=== PATIENT | male | born 1970 | race African-American/Black ===

== ENCOUNTER 2016-11-29 12:32 | Emergency (ER) | payer OTHER ==
[~2016-11-29] VITALS: Ht 176.5 cm; Wt 93.4 kg
[~2016-11-29 12:32] MED LIST: LISI-338 PO
[2016-11-29 12:38] VITALS: BP 139/87
[2016-11-29] MEDS ORDERED: SULF1TAB24 PO (13:27)
[2016-11-29] MEDS ORDERED: PRED50TA PO (13:27)
[2016-11-29] MEDS ORDERED: HYDR-971 PO (13:27)
[2016-11-29] MEDS ORDERED: DIPH25CA58 PO (13:27)
--- NOTE | 2016-11-29 13:27 | PHYS DOC ---
Past Medical History Past Medical History: Hypertension, Pneumonia Past Surgical History: No Surgical History Alcohol Use: Occasionally Drug Use: None Adult General Chief Complaint Chief Complaint: SKIN PROBLEM HPI HPI Patient is a 45 year old male with history of hypertension who presents complaining of a bump on the back of his neck for the last 1-1/2 weeks. Patient denies any fever or drainage from the area. Review of Systems Review of Systems Constitutional: See history of present illness Eyes: Denies change in visual acuity, redness, or eye pain [] Musculoskeletal: Denies back pain or joint pain [] Integument: bump on the back of the neck Neurologic: Denies headache, focal weakness or sensory changes [] Endocrine: Denies polyuria or polydipsia [] Allergies Allergies Allergies Coded Allergies Type Severity Reaction Last Updated Verified hydrocodone Allergy Intermediate Hives 11/29/16 No Physical Exam Physical Exam Constitutional: Well developed, well nourished, no acute distress, non-toxic appearance. [] HENT: Normocephalic, atraumatic, bilateral external ears normal, oropharynx moist, no oral exudates, nose normal. [] Abdomen: Bowel sounds normal, soft, no tenderness, no masses, no pulsatile masses. [] Skin: Posterior cervical spine with and none indurated firm area approximately 2 x 2 centimeters. The area is warm and tender to touch. No fluctuance to the area. Back: No tenderness, no CVA tenderness. [] Extremities: No tenderness, no cyanosis, no clubbing, ROM intact, no edema. [] Neurologic: Alert and oriented X 3, normal motor function, normal sensory function, no focal deficits noted. [] Psychologic: Affect normal, judgement normal, mood normal. [] Current Patient Data Vital Signs Vital Signs Date Time Temp Pulse Resp B/P Pulse Ox O2 Delivery O2 Flow Rate FiO2 11/29/16 12:38 98.3 88 18 99 Room Air 98.3 EKG EKG [] Radiology/Procedures Radiology/Procedures [] Course & Med Decision Making Course & Med Decision Making Pertinent Labs and Imaging studies reviewed. (See chart for details) Patient has what appears to be an abscess on the back of the neck suspicious from an ingrown hair. He was given tetanus in the ED. Discharged with Bactrim. Follow-up with PCP in 1-2 weeks as needed. Dragon Disclaimer Dragon Disclaimer This electronic medical record was generated, in whole or in part, using a voice recognition dictation system. Departure Departure Impression: Primary Impression: Abscess of neck Additional Impression: Ingrown hair Disposition: 01 HOME, SELF-CARE Condition: STABLE Referrals: NO PCP (PCP) Follow-up with your doctor in 2 weeks Patient Instructions: Abscess, Ingrown Hair Additional Instructions: You were seen for with an abscess on her neck. This could've come from an ingrown hair or an insect bite. Keep the area clean and dry. Ensure you complete your antibiotics. Follow-up with your doctor in one week. Scripts Sulfamethoxazole/Trimethoprim (Bactrim Ds Tablet)1 Each Tablet1 Tab PO BID #20 TAB Prov:MANISHA PICKERING APRN 11/29/16 Prednisone 50 Mg Tablet1 Tab PO DAILY #5 TAB Prov:MANISHA PICKERING APRN 11/29/16 Diphenhydramine Hcl (Benadryl)25 Mg Capsule1 Cap PO Q4-6HRS PRN RASH #30 CAP Ref 1 Prov:MANISHA PICKERING APRN 11/29/16 Hydrocodone/Apap 5-325 ([place] 5-325 Tablet)1 Each Tablet1-2 Tab PO Q4-6HRS #20 TAB Prov:MANISHA PICKERING APRN 11/29/16 Problem Qualifiers MANISHA PICKERING APRN Nov 29, 2016 13:27
[2016-11-29] MEDS ORDERED: DIPHTH,PERTUSS(ACELL),TET TOX 0.5 ML DISP.SYRIN. VAX IM ONE (13:30)
== END 2016-11-29 13:38 | disposition home or self-care (01) ==
LOC: ER 12:32
DX: L02.11 Cutaneous abscess of neck (principal); L73.1 Pseudofolliculitis barbae; I10 Essential (primary) hypertension; Z88.5 Allergy status to narcotic agent
CPT/HCPCS: 90471; 90715; 99283-25

== ENCOUNTER 2017-02-04 12:59 | Emergency (ER) | payer OTHER ==
[~2017-02-04 12:59] MED LIST changes: +DIPH25CA58 PO; +HYDR-971 PO; +PRED50TA PO; +SULF1TAB24 PO
[2017-02-04 13:16] VITALS: BP 155/98
[2017-02-04] MEDS ORDERED: ACET-704 PO (13:48)
[2017-02-04] MEDS ORDERED: CHLO1TB. PO (13:48)
[2017-02-04] MEDS ORDERED: PRED50TA PO (13:48)
[2017-02-04] MEDS ORDERED: AMOX1TAB61 PO (13:48)
--- NOTE | 2017-02-04 13:48 | PHYS DOC ---
Past Medical History Past Medical History: Hypertension, Pneumonia Past Surgical History: No Surgical History Alcohol Use: Occasionally Drug Use: None Adult General Chief Complaint Chief Complaint: Congestion HPI HPI Patient is a 46 year old male with history of hypertension who presents with sinus congestion and pressure for 3 weeks. Patient states he has tried over-the- counter medications including Claritin, Flonase with no relief. Patient denies any fever. He sounds congested nasally. Review of Systems Review of Systems Constitutional: Denies fever or chills [] Eyes: Denies change in visual acuity, redness, or eye pain [] HENT:nasal congestion Respiratory: Denies cough or shortness of breath [] Cardiovascular: No additional information not addressed in HPI [] GI: Denies abdominal pain, nausea, vomiting, bloody stools or diarrhea [] : Denies dysuria or hematuria [] Musculoskeletal: Denies back pain or joint pain [] Integument: Denies rash or skin lesions [] Neurologic: Denies headache, focal weakness or sensory changes [] Endocrine: Denies polyuria or polydipsia [] Allergies Allergies Allergies Coded Allergies Type Severity Reaction Last Updated Verified hydrocodone Allergy Intermediate Hives 11/29/16 No Physical Exam Physical Exam Constitutional: Well developed, well nourished, no acute distress, non-toxic appearance. [] HENT: Normocephalic, atraumatic, bilateral external ears normal, oropharynx moist, no oral exudates, Bilateral nasal turbinates are boggy and erythematous. Patient sounds very congested nasally. Moderate frontal and maxillary sinus tenderness Eyes: PERRLA, EOMI, conjunctiva normal, no discharge. [] Neck: Normal range of motion, no tenderness, supple, no stridor. [] Cardiovascular:Heart rate regular rhythm, no murmur [] Lungs & Thorax: Bilateral breath sounds clear to auscultation [] Abdomen: Bowel sounds normal, soft, no tenderness, no masses, no pulsatile masses. [] Skin: Warm, dry, no erythema, no rash. [] Back: No tenderness, no CVA tenderness. [] Extremities: No tenderness, no cyanosis, no clubbing, ROM intact, no edema. [] Neurologic: Alert and oriented X 3, normal motor function, normal sensory function, no focal deficits noted. [] Psychologic: Affect normal, judgement normal, mood normal. [] Current Patient Data Vital Signs Vital Signs Date Time Temp Pulse Resp B/P (MAP) Pulse Ox O2 Delivery O2 Flow Rate FiO2 02/04/17 13:16 98.2 89 18 99 Room Air 98.2 EKG EKG [] Radiology/Procedures Radiology/Procedures [] Course & Med Decision Making Course & Med Decision Making Pertinent Labs and Imaging studies reviewed. (See chart for details) Patient has acute sinusitis. Discharged with Augmentin and prednisone. Recommended Flomax. Recommended Coricidin BP for congestion, he has history of hypertension with current blood pressure 155/98 and decongestants will increase his blood pressure. Recommended Flonase which he is already using. Dragon Disclaimer [employer] Disclaimer This electronic medical record was generated, in whole or in part, using a voice recognition dictation system. Departure Departure Impression: Primary Impression: Acute sinusitis Additional Impression: High blood pressure Disposition: HOME, SELF-CARE Condition: STABLE Referrals: NO PCP (PCP) Follow-up with your doctor in 1-2 weeks Patient Instructions: Hypertension, Sinusitis Additional Instructions: You were seen for acute sinusitis. Be careful about using decongestants with history of hypertension. They tend to increase your blood pressure. Complete your antibiotics. Follow-up with your primary care doctor in the next 7 days. Come back to the ED symptoms worsen. Scripts Acetaminophen With Codeine (TYLENOL WITH CODEINE #3 TABLET) 1 Each Tablet 1 TAB PO PRN Q6HRS Y for PAIN, #14 TAB Prov: MUTUNGAMANISHA COMPUTER NUMERIC CONTROL SETTER 02/04/17 Chlorphen/Dm/Acetaminophen/Gg (CORICIDIN HBP DAY-NIGHT PACK) 1 Each Tb.cp.seq 1 EACH PO BID, #20 TAB Prov: MUTUNGAMANISHA COMPUTER NUMERIC CONTROL SETTER 02/04/17 Amoxicillin/Potassium Clav (AUGMENTIN 875-125 TABLET) 1 Each Tablet 1 TAB PO BID, #20 TAB Prov: MUTUNGAMANISHA COMPUTER NUM[employer]IC CONTROL SETTER 02/04/17 Prednisone (PREDNISONE) 50 Mg Tablet 1 TAB PO DAILY, #5 TAB Prov: MUTUNGAMANISHA COMPUTER [employer]IC CONTROL SETTER 02/04/17 Problem Qualifiers Primary Impression: Acute sinusitis Sinusitis location: frontal Recurrence: non-recurrent Qualified Codes: J01.10 - Acute frontal sinusitis, unspecified Additional Impression: High blood pressure Hypertension type: unspecified secondary hypertension Qualified Codes: I15.9 - Secondary hypertension, unspecified MUTUNGA,MANISHA COMPUTER NUMERIC CONTROL SETTER Feb 04, 2017 13:48
== END 2017-02-04 13:55 | disposition home or self-care (01) ==
LOC: ER 12:59
DX: J01.10 Acute frontal sinusitis, unspecified (principal); I15.9 Secondary hypertension, unspecified; Z87.01 Personal history of pneumonia (recurrent); Z88.5 Allergy status to narcotic agent
CPT/HCPCS: 99283

== ENCOUNTER 2017-04-03 23:42 | Emergency (ER) | payer OTHER ==
[~2017-04-03 23:42] MED LIST changes: +ACET-704 PO; +AMOX1TAB61 PO; +CHLO1TB. PO
[2017-04-04 00:17] VITALS: BP 171/96
[2017-04-04] MEDS ORDERED: D ME PO (00:27)
[2017-04-04] MEDS ORDERED: ACET-704 PO (00:27)
[2017-04-04] MEDS ORDERED: AMOX1TAB61 PO (00:27)
[2017-04-04] MEDS ORDERED: FLUT9.9S NS (00:27)
--- NOTE | 2017-04-04 00:28 | PHYS DOC ---
Past Medical History Past Medical History: Hypertension, Pneumonia Past Surgical History: No Surgical History Alcohol Use: Occasionally Drug Use: None Adult General Chief Complaint Chief Complaint: Congestion HPI HPI Patient is a 46 year old male presents to the emergency department with a two- week history of sinus congestion with facial pain. States he has not had a fever. He's had increasing pressure in the face. Denies headache, nausea, vomiting. Patient was evaluated 1 month ago in the emergency department for same complaint. He states he got better after taking the antibiotics. Review of Systems Review of Systems Constitutional: Denies fever or chills [] Eyes: Denies change in visual acuity, redness, or eye pain, watery discharge [] HENT: Nasal congestion, sore throat Respiratory: Cough Cardiovascular: No additional information not addressed in HPI [] GI: Denies abdominal pain, nausea, vomiting, bloody stools or diarrhea [] Musculoskeletal: Denies back pain or joint pain [] Integument: Denies rash or skin lesions [] Neurologic: Denies headache, focal weakness or sensory changes [] Endocrine: Denies polyuria or polydipsia [] Allergies Allergies Allergies Coded Allergies Type Severity Reaction Last Updated Verified hydrocodone Allergy Intermediate Hives 11/29/16 No Physical Exam Physical Exam Constitutional: Well developed, well nourished, no acute distress, non-toxic appearance. [] HENT: Normocephalic, atraumatic, bilateral external ears normal, left tympanic membrane retracted, erythematous, oropharynx moist, no oral exudates, nose normal. Maxillary sinus tenderness [] Eyes: PERRLA, EOMI, conjunctiva normal, no discharge, watery discharge. [] Neck: Normal range of motion, no tenderness, supple, no stridor. [] Cardiovascular:Heart rate regular rhythm, no murmur [] Lungs & Thorax: Bilateral breath sounds clear to auscultation [] Abdomen: Bowel sounds normal, soft, no tenderness, no masses, no pulsatile masses. [] Skin: Warm, dry, no erythema, no rash. [] Neurologic: Alert and oriented X 3, normal motor function, normal sensory function, no focal deficits noted. [] EKG EKG [] Radiology/Procedures Radiology/Procedures [] Course & Med Decision Making Course & Med Decision Making Pertinent Labs and Imaging studies reviewed. (See chart for details) [] Dragon Disclaimer Dragon Disclaimer This electronic medical record was generated, in whole or in part, using a voice recognition dictation system. Departure Departure Impression: Primary Impression: Acute sinusitis Additional Impression: Otitis media Disposition: 01 HOME, SELF-CARE Condition: STABLE Referrals: NO PCP (PCP) [facility] Patient Instructions: Otitis Media, Adult, Sinusitis Scripts Acetaminophen With Codeine (TYLENOL WITH CODEINE #3 TABLET) 1 Each Tablet 1 TAB PO PRN Q6HRS Y for PAIN, #15 TAB Prov: LOUIE SLOAN APRN 04/04/17 D-Methorphan/Acetamin/Doxylamn (CORICIDIN HBP COLD-MULTI SYMPT) 355 Ml Liquid 5 ML PO TID Y for cold symptoms, #240 ML Prov: LOUIE SLOAN APRN 04/04/17 Fluticasone Propionate (Flonase Allergy Relief) 9.9 Ml [place].susp 2 SPRAYS NS DAILY, #1 BOTTLE Prov: LOUIE SLOAN APRN 04/04/17 Amoxicillin/Potassium Clav (AUGMENTIN 875-125 TABLET) 1 Each Tablet 1 TAB PO BID, #20 TAB Prov: LOUIE SLOAN APRN 04/04/17 Problem Qualifiers Primary Impression: Acute sinusitis Sinusitis location: maxillary Recurrence: recurrent Qualified Codes: J01.01 - Acute recurrent maxillary sinusitis Additional Impression: Otitis media Otitis media type: serous Chronicity: acute Laterality: left Recurrence: not specified as recurrent Qualified Codes: H65.02 - Acute serous otitis media, left ear LOUIE SLOAN APRN Apr 04, 2017 00:27
== END 2017-04-04 01:00 | disposition home or self-care (01) ==
LOC: ER 23:42
DX: J01.01 Acute recurrent maxillary sinusitis (principal); H65.02 Acute serous otitis media, left ear; I10 Essential (primary) hypertension; Z87.01 Personal history of pneumonia (recurrent); Z88.5 Allergy status to narcotic agent
CPT/HCPCS: 99283

== ENCOUNTER 2017-04-13 16:26 | Emergency (ER) | payer OTHER ==
[~2017-04-13] VITALS: Ht 175.3 cm; Wt 95.3 kg
[~2017-04-13 16:26] MED LIST changes: +D ME PO; +FLUT9.9S NS
[2017-04-13] MEDS ORDERED: ONDANSETRON PF 4 MG/2 ML VIAL. IV ONE (17:15)
[2017-04-13] MEDS ORDERED: IV NORMAL SALINE 1000ML BAG 1,000 ML IV ONE (17:15)
[2017-04-13 18:18] LABS: BASO # 0.1 x10^3/uL (0.0-0.2); BASO % 1 % (0-3); EOS % 16 % (0-3); HEMATOCRIT 41.5 % (39.0-53.0); HEMOGLOBIN 13.8 g/dL (13.0-17.5); LYMPH # 4.3 x10^3/uL (1.0-4.8); LYMPH % 31 % (24-48); MEAN CORPUSCULAR HEMOGLOBIN 28 pg (25-35); MEAN CORPUSCULAR HGB CONC 33 g/dL (31-37); MEAN CORPUSCULAR VOLUME 85 fL (79-100); MONO % 4 % (0-9); NEUT % 48 % (31-73); PLATELET COUNT 213 x10^3/uL (140-400); RED BLOOD COUNT 4.87 x10^6/uL (4.30-5.70); RED CELL DISTRIBUTION WIDTH 15.4 % (11.5-14.5)
[2017-04-13 18:34] LABS: CALCIUM 9.8 mg/dL (8.5-10.1); CREATININE 0.7 mg/dL (0.7-1.3); GFR 148.2; POTASSIUM 4.6 mmol/L (3.5-5.1)
[2017-04-13 18:41] LABS: ALBUMIN 3.8 g/dL (3.4-5.0); ALBUMIN/GLOBULIN RATIO 1.1 (1.0-1.7); TOTAL BILIRUBIN 0.3 mg/dL (0.2-1.0); TOTAL PROTEIN 7.2 g/dL (6.4-8.2)
--- NOTE | 2017-04-13 19:49 | PHYS DOC ---
Past Medical History Past Medical History: No Pertinent History Past Surgical History: No Surgical History Additional Information: EC, PER PATIENT. Alcohol Use: Rarely Drug Use: None Adult General Chief Complaint Chief Complaint: ABDOMINAL PAIN HPI HPI Patient is a 46 year old male who presents with diarrhea. The patient has 5 day history of loose stools, 2-8 per day. Denies fevers/chills, nausea, vomiting, abdominal pain, hematochezia/melena. States he was taking augmentin for sinus infection just before symptoms began. He has already discontinued augmentin. Denies medical or surgical history. Review of Systems Review of Systems Constitutional: Denies fever or chills Eyes: Denies change in visual acuity HENT: Denies nasal congestion or sore throat Respiratory: Denies cough or shortness of breath Cardiovascular: Denies chest pain GI: Denies abdominal pain, nausea, vomiting, bloody stools, reports diarrhea : Denies dysuria or hematuria Musculoskeletal: Denies back pain or joint pain Integument: Denies rash or skin lesions Neurologic: Denies headache, focal weakness or sensory changes Current Medications Current Medications Current Medications Medications (Trade) Dose Ordered Sig/Penny Start Time Stop Time Status Last Admin Dose Admin Ondansetron HCl (Zofran) 4 mg 1X ONCE 04/13/17 17:15 04/13/17 17:16 DC Sodium Chloride 1,000 ml @ 1,000 mls/hr 1X ONCE 04/13/17 17:15 04/13/17 18:14 DC 04/13/17 18:00 1,000 MLS/HR Allergies Allergies Allergies Coded Allergies Type Severity Reaction Last Updated Verified hydrocodone Allergy Intermediate Hives 11/29/16 No Physical Exam Physical Exam Constitutional: Well developed, well nourished, no acute distress, non-toxic appearance. HENT: Normocephalic, atraumatic, bilateral external ears normal, oropharynx moist, nose normal. Eyes: conjunctiva normal, no discharge. Neck: supple, no stridor. Cardiovascular: RRR, no murmurs, no edema. Lungs & Thorax: LCTAB, no wheezing, no respiratory distress. Abdomen: soft, nontender, nondistended. no masses or pulsatile masses, no rebound/guarding. Skin: Warm, dry, no erythema, no rash. Back: No CVA tenderness. Extremities: No tenderness, no edema. Neurologic: Alert and oriented X 3, no focal deficits noted. Psychologic: Affect normal, judgement normal, mood normal. Current Patient Data Vital Signs Vital Signs Date Time Temp Pulse Resp B/P (MAP) Pulse Ox O2 Delivery O2 Flow Rate FiO2 04/13/17 20:06 74 18 137/82 (100) 98 04/13/17 16:30 98.9 Room Air 98.9 Lab Values Laboratory Tests Test 04/13/17 18:01 White Blood Count 14.0 x10^3/uL (4.0-11.0) H Red Blood Count 4.87 x10^6/uL (4.30-5.70) Hemoglobin 13.8 g/dL (13.0-17.5) Hematocrit 41.5 % (39.0-53.0) Mean Corpuscular Volume 85 fL (79-100) Mean Corpuscular Hemoglobin 28 pg (25-35) Mean Corpuscular Hemoglobin Concent 33 g/dL (31-37) Red Cell Distribution Width 15.4 % (11.5-14.5) H Platelet Count 213 x10^3/uL (140-400) Neutrophils (%) (Auto) 48 % (31-73) Lymphocytes (%) (Auto) 31 % (24-48) Monocytes (%) (Auto) 4 % (0-9) Eosinophils (%) (Auto) 16 % (0-3) H Basophils (%) (Auto) 1 % (0-3) Neutrophils # (Auto) 6.8 x10^3uL (1.8-7.7) Lymphocytes # (Auto) 4.3 x10^3/uL (1.0-4.8) Monocytes # (Auto) 0.6 x10^3/uL (0.0-1.1) Eosinophils # (Auto) 2.3 x10^3/uL (0.0-0.7) H Basophils # (Auto) 0.1 x10^3/uL (0.0-0.2) Sodium Level 142 mmol/L (136-145) Potassium Level 4.6 mmol/L (3.5-5.1) Chloride Level 103 mmol/L (98-107) Carbon Dioxide Level 29 mmol/L (21-32) Anion Gap 10 (6-14) Blood Urea Nitrogen 13 mg/dL (8-26) Creatinine 0.7 mg/dL (0.7-1.3) Estimated GFR (Cockcroft-Gault) 148.2 BUN/Creatinine Ratio 19 (6-20) Glucose Level 88 mg/dL (70-99) Calcium Level 9.8 mg/dL (8.5-10.1) Total Bilirubin 0.3 mg/dL (0.2-1.0) Aspartate Amino Transferase (AST) 51 U/L (15-37) H Alanine Aminotransferase (ALT) 67 U/L (16-63) H Alkaline Phosphatase 102 U/L (46-116) Total Protein 7.2 g/dL (6.4-8.2) Albumin 3.8 g/dL (3.4-5.0) Albumin/Globulin Ratio 1.1 (1.0-1.7) Lipase 218 U/L (73-393) Laboratory Tests 04/13/17 18:01 Laboratory Tests 04/13/17 18:01 EKG EKG [] Radiology/Procedures Radiology/Procedures [] Course & Med Decision Making Course & Med Decision Making Pertinent Labs and Imaging studies reviewed. (See chart for details) The patient presents with diarrhea. He is well appearing with stable vitals. Abdomen is nontender. Gave IV fluids. Obtained labs which show no electrolyte abnormality. Did not provide stool sample here for c diff culture. Recommend rest, PO hydration with clear liquids, tylenol/ibuprofen for pain, immodium as needed. Follow up with primary care doctor in 2-3 days. Come back for high fever, severe pain, uncontrolled vomiting, any otherwise worsening condition. Discharged home in stable condition. [] Dragon Disclaimer Dragon Disclaimer This electronic medical record was generated, in whole or in part, using a voice recognition dictation system. Departure Departure Impression: Primary Impression: Diarrhea Disposition: 01 HOME, SELF-CARE Condition: STABLE Referrals: NO PCP (PCP) STEFANIE ESTEVES MD Patient Instructions: Diarrhea, [id number] Additional Instructions: You were seen in the emergency department today for diarrhea. Please stop taking the antibiotics. Rest, drink clear liquids to stay hydrated. Try Imodium. Follow-up with a primary care doctor such as Dr. Esteves in 2-3 days if not improving. Return to the emergency department for high fever, severe pain , uncontrolled vomiting, any otherwise worsening condition. RONAN HOWARD MD Apr 13, 2017 19:49
[2017-04-13 20:06] VITALS: BP 137/82
== END 2017-04-13 20:06 | disposition home or self-care (01) ==
LOC: ER 16:26
DX: R19.7 Diarrhea, unspecified (principal); Z88.5 Allergy status to narcotic agent
CPT/HCPCS: 36415; 80053; 83690; 85025; 96360; 99284; J7030

== ENCOUNTER 2017-07-04 00:25 | Emergency (ER) | payer OTHER ==
[~2017-07-04] VITALS: Ht 177.8 cm; Wt 93.4 kg
[~2017-07-04 00:25] MED LIST changes: +AMOX875T PO
--- NOTE | 2017-07-04 00:41 | PHYS DOC ---
Past Medical History Past Medical History: No Pertinent History, Hypertension Past Surgical History: No Surgical History Alcohol Use: Rarely Drug Use: None Adult General Chief Complaint Chief Complaint: SKIN RASH/ABSCESS HPI HPI Patient is a 46 year old AA male who presents with soft tissue infection to posterior neck. Patient reports increased pain tenderness and swelling starting 2 days ago. Denies knowledge insect bite. History of previous abscesses. Denies soft of MRSA or DM. No fever chills, nausea vomiting or sweats. Other acute symptoms or complaints.[] Review of Systems Review of Systems ROS as per HPI. All other systems were reviewed and found to be within normal limits, except as documented in this note. Current Medications Current Medications Current Medications Medications (Trade) Dose Ordered Sig/Penny Start Time Stop Time Status Last Admin Dose Admin Lidocaine/ Epinephrine (Xylocaine 1%-Epi 1:100,000) 20 ml 1X ONCE 07/04/17 01:00 07/04/17 01:01 DC Oxycodone/ Acetaminophen (Percocet 5/325) 1 tab 1X ONCE 07/04/17 01:15 07/04/17 01:16 UNV Allergies Allergies Allergies Coded Allergies Type Severity Reaction Last Updated Verified hydrocodone Allergy Intermediate Hives 11/29/16 No Physical Exam Physical Exam Constitutional: Well developed, well nourished, no acute distress, non-toxic appearance. [] HENT: Normocephalic, atraumatic, bilateral external ears normal, oropharynx moist, no oral exudates, nose normal. [] Eyes: PERRLA, EOMI, conjunctiva normal. [] Neck: Normal range of motion, 2 x 3 post neck swelling and and tenderness with mild erythema, induration and mild fluctuance present. No pointing, drainage, weeping or lymphadenopathy appreciated. . [] Cardiovascular:Heart rate regular rhythm, no murmur [] Neurologic: Alert and oriented X 3, normal motor function, normal sensory function, no focal deficits noted. [] Psychologic: Affect normal, judgement normal, mood normal. [] Current Patient Data Vital Signs Vital Signs Date Time Temp Pulse Resp B/P (MAP) Pulse Ox O2 Delivery O2 Flow Rate FiO2 07/04/17 00:36 98.1 78 20 100 Room Air 98.1 EKG EKG [] Radiology/Procedures Radiology/Procedures Incision and drainage procedure note: Consent was provided to the patient with benefits, risks and alternatives discussed in detail. Patient requests I&D pre-performed and these emergency department this evening by this provider. Anesthesia used: 1-1/2 mL also 1% lidocaine with epinephrine Surgeon: Dr. Bruce Savage The patient's neck was prepped with Betadine. Approximately 1.5 ML's of lidocaine was then injected to the area of greatest fluctuance. Following which a #11 blade was used to make a single stab incision. Purulent material was then expressed from the incision. Pockets were probed with a blunt hemostat and the wound was then irrigated. A small amount of additional pus was removed. Following which approximately 2 inches of quarter-inch non-iodoform packing was started in a bandage was placed over the incision wound. Patient was instructed to remove packing at home in 2 days or to return to the ED to have packing removed. He was further instructed to return to the emergency department should he have worsening symptoms. He is otherwise to follow-up with his primary care. Provider. Patient was sided prescription for both pain medication and antibiotics. Complications: None Disposition: Home Course & Med Decision Making Course & Med Decision Making Pertinent Labs and Imaging studies reviewed. (See chart for details) [Successful I&D of soft tissue neck abscess. Typical aftercare instructions provided. Return precautions reviewed. Patient verbalized understanding agreement with discharge instructions prior to departure.] Dragon Disclaimer Dragon Disclaimer This electronic medical record was generated, in whole or in part, using a voice recognition dictation system. Departure Departure Impression: Primary Impression: Abscess of neck Disposition: HOME, SELF-CARE Condition: GOOD Referrals: NO PCP (PCP) BRUCE SAVAGE DO Jul 04, 2017 00:41
[2017-07-04] MEDS ORDERED: LIDOCAINE 1%/EPI 1:100,000 20 ML VIAL. INJ ONE ×2 (01:00)
[2017-07-04 01:20] VITALS: BP 160/90
[2017-07-04] MEDS ORDERED: oxyCODONE/APAP 5/325 1 TAB TABLET PO ONE (01:30)
== END 2017-07-04 01:29 | disposition home or self-care (01) ==
LOC: ER 00:25
DX: L02.11 Cutaneous abscess of neck (principal); I10 Essential (primary) hypertension; Z88.5 Allergy status to narcotic agent
CPT/HCPCS: 10060; 99283; J3490

== ENCOUNTER 2017-07-29 00:05 | Emergency (ER) | payer OTHER ==
[~2017-07-29] VITALS: Ht 175.3 cm; Wt 93.4 kg
[2017-07-29 00:10] VITALS: BP 151/95
[2017-07-29] MEDS ORDERED: AMOX500C PO (00:15)
[2017-07-29] MEDS ORDERED: HYDR-971 PO (00:15)
--- NOTE | 2017-07-29 00:15 | PHYS DOC ---
Past Medical History Past Medical History: No Pertinent History, Hypertension Past Surgical History: No Surgical History Alcohol Use: Rarely Drug Use: None Adult General Chief Complaint Chief Complaint: DENTAL PROBLEM HPI HPI Patient is a 46 year old male presents the ED complaining of dental pain times one day. Patient states he broke his tooth a few years ago and occasionally gets dental pain where the broken tooth is at. Describes the pain as sharp. Rates the pain as 8 out of 10. Denies fever, tongue swelling, difficulty swallowing, nausea/vomiting, chest pain, shortness of breath or facial swelling. Review of Systems Review of Systems Constitutional: Denies fever or chills [] Eyes: Denies change in visual acuity, redness, or eye pain [] HENT: Denies nasal congestion or sore throat [] Respiratory: Denies cough or shortness of breath [] Cardiovascular: No additional information not addressed in HPI [] GI: Denies abdominal pain, nausea, vomiting, bloody stools or diarrhea [] : Denies dysuria or hematuria [] Musculoskeletal: Denies back pain or joint pain [] Integument: Denies rash or skin lesions [] Neurologic: Denies headache, focal weakness or sensory changes [] Endocrine: Denies polyuria or polydipsia [] All other systems were reviewed and found to be within normal limits, except as documented in this note. Allergies Allergies Allergies Coded Allergies Type Severity Reaction Last Updated Verified hydrocodone Allergy Intermediate Hives 11/29/16 No Physical Exam Physical Exam Constitutional: Well developed, well nourished, no acute distress, non-toxic appearance. [] HENT: Normocephalic, atraumatic, bilateral external ears normal, oropharynx moist, no oral exudates, nose normal. LEFT UPPER MOLAR DENTAL AVULSION. POOR DENTITION THROUGHOUT. NO ABSCESS OR FLUCTUANCE.[] Eyes: PERRLA, EOMI, conjunctiva normal, no discharge. [] Neck: Normal range of motion, no tenderness, supple, no stridor. [] Cardiovascular:Heart rate regular rhythm, no murmur [] Lungs & Thorax: Bilateral breath sounds clear to auscultation [] Neurologic: Alert and oriented X 3, normal motor function, normal sensory function, no focal deficits noted. [] Psychologic: Affect normal, judgement normal, mood normal. [] Current Patient Data Vital Signs Vital Signs Date Time Temp Pulse Resp B/P (MAP) Pulse Ox O2 Delivery O2 Flow Rate FiO2 07/29/17 00:10 98.2 78 20 100 Room Air 98.2 EKG EKG [] Radiology/Procedures Radiology/Procedures [] Course & Med Decision Making Course & Med Decision Making Pertinent Labs and Imaging studies reviewed. (See chart for details) [] Patient states he does not have an allergy to hydrocodone. States he has taken it in the past without complications. Will prescribe a few days of analgesics and amoxicillin. Discussed follow-up with the dentist early next week. Provided contact information/education. Patient given community resource list. Discussed the importance of follow-up and reasons to return to the ED. Patient understands and agrees with plan. Dragon Disclaimer Dragon Disclaimer This electronic medical record was generated, in whole or in part, using a voice recognition dictation system. Departure Departure Impression: Primary Impression: Pain, dental Disposition: HOME, SELF-CARE Condition: STABLE Referrals: NO PCP (PCP) SIVAN CRUZ DDS Patient Instructions: Dental Pain Scripts Amoxicillin (AMOXICILLIN) 500 Mg Capsule 1 CAP PO TID, #30 CAP Prov: IDRIS BARRY 07/29/17 Hydrocodone/Apap 5-325 (NORCO 5-325 TABLET) 1 Each Tablet 1 TAB PO TID, #8 TAB Prov: IDRIS BARRY 07/29/17 IDRIS BARRY Jul 29, 2017 00:15
[2017-08-01] MEDS ORDERED: CLIN300C8 PO (11:52)
== END 2017-07-29 00:18 | disposition home or self-care (01) ==
LOC: ER 00:05
DX: S03.2XXA Dislocation of tooth, initial encounter (principal); I10 Essential (primary) hypertension; Z88.5 Allergy status to narcotic agent; X58.XXXA Exposure to other specified factors, initial encounter; Y93.89 Activity, other specified; Y92.89 Other specified places as the place of occurrence of the external cause; Y99.8 Other external cause status
CPT/HCPCS: 99283

== ENCOUNTER 2017-08-01 10:03 | Emergency (ER) | payer OTHER ==
[2017-08-01] MEDS: KETOROLAC 60 MG/2 ML INJ. IM (10:52)
[2017-08-01] MEDS: CIPROFLOXACIN 400MG PREMIX 200 ML IV (11:30)
[2017-08-01] MEDS: CLINDAMYCIN 600MG PREMIX 50 ML IV (11:30)
[2017-08-01] MEDS ORDERED: LACTOBACILLUS RHAMNOSUS GG 1 CAPSULE. PO (21:00)
== END 2017-08-01 13:43 | disposition home or self-care (01) ==
LOC: ER 13:43
DX: L03.211 Cellulitis of face (principal); I10 Essential (primary) hypertension; Z88.5 Allergy status to narcotic agent
CPT/HCPCS: 70486; 96365; 96366; 96368; 96372; 99285-25; J0744; J1885; J3490

== ENCOUNTER 2017-12-29 03:16 | Emergency (ER) | payer OTHER | END 2017-12-29 04:31 | disposition home or self-care (01) | LOC: ER 03:16 | DX: H66.002 Acute suppurative otitis media without spontaneous rupture of ear drum, left ear (principal); I10 Essential (primary) hypertension; Z88.5 Allergy status to narcotic agent | CPT/HCPCS: 99283 ==

== ENCOUNTER 2018-04-15 14:01 | Emergency (ER) | payer OTHER ==
[~2018-04-15] VITALS: Ht 175.3 cm; Wt 92.1 kg
[~2018-04-15 14:01] MED LIST changes: +AMOX500C PO; +CLIN300C8 PO; +NAPR-514 PO
[2018-04-15 15:35] VITALS: BP 148/91
[2018-04-15] MEDS ORDERED: DOCUSATE 100 MG/10 ML SOLUTION. AS STA (15:40)
--- NOTE | 2018-04-15 16:44 | PHYS DOC ---
Past Medical History Past Medical History: No Pertinent History Past Surgical History: No Surgical History Alcohol Use: Occasionally Drug Use: None Adult General Chief Complaint Chief Complaint: EARACHE/EAR PAIN HPI HPI Patient is a 47 year old male with no medical history who presents today complaining of 6 out of 10 left ear pain that began 4 days ago. Patient denies any fever coughing congestion. He states he has history of ear infections. Also states he has history of earwax. Has tried using [id number] earwax removal agents with no success. Review of Systems Review of Systems Constitutional: Denies fever or chills [] Eyes: Denies change in visual acuity, redness, or eye pain [] HENT:Reports left ear pain. Denies nasal congestion or sore throat [] Respiratory: Denies cough or shortness of breath [] Cardiovascular: No additional information not addressed in HPI [] GI: Denies abdominal pain, nausea, vomiting, bloody stools or diarrhea [] : Denies dysuria or hematuria [] Musculoskeletal: Denies back pain or joint pain [] Integument: Denies rash or skin lesions [] Neurologic: Denies headache, focal weakness or sensory changes [] All other systems were reviewed and found to be within normal limits, except as documented in this note. Current Medications Current Medications Current Medications Medications (Trade) Dose Ordered Sig/Penny Start Time Stop Time Status Last Admin Dose Admin Docusate Sodium (Colace Solution) 100 mg 1X STAT 04/15/18 15:40 04/15/18 15:41 DC 04/15/18 16:10 100 MG Allergies Allergies Allergies Coded Allergies Type Severity Reaction Last Updated Verified hydrocodone Allergy Intermediate Hives 11/29/16 No Physical Exam Physical Exam Constitutional: Well developed, well nourished, no acute distress, non-toxic appearance. [] HENT: Normocephalic, atraumatic, bilateral external ears normal, oropharynx moist, no oral exudates, nose normal. [] Left ear canal has mild amount of cerumen. TM not well visualized we will clean the ear and re- examine Eyes: PERRLA, EOMI, conjunctiva normal, no discharge. [] Neck: Normal range of motion, no tenderness, supple, no stridor. [] Cardiovascular:Heart rate regular rhythm, no murmur [] Lungs & Thorax: Bilateral breath sounds clear to auscultation [] Abdomen: Bowel sounds normal, soft, no tenderness, no masses, no pulsatile masses. [] Skin: Warm, dry, no erythema, no rash. [] Back: No tenderness, no CVA tenderness. [] Extremities: No tenderness, no cyanosis, no clubbing, ROM intact, no edema. [] Neurologic: Alert and oriented X 3, normal motor function, normal sensory function, no focal deficits noted. [] Psychologic: Affect normal, judgement normal, mood normal. [] Current Patient Data Vital Signs Vital Signs Date Time Temp Pulse Resp B/P (MAP) Pulse Ox O2 Delivery O2 Flow Rate FiO2 04/15/18 15:35 99.1 80 18 148/91 (110) 98 Room Air 99.1 EKG EKG [] Radiology/Procedures Radiology/Procedures [] Course & Med Decision Making Course & Med Decision Making Pertinent Labs and Imaging studies reviewed. (See chart for details) This is a 47-year-old male patient who presents today complaining of left ear pain and concerned he could have an ear infection. On first exam patient states in the left ear, the ear was cleaned out. After the cerumen was removed the TM appears mildly injected with small amount of cloudy fluid. Patient will be discharged with amoxicillin. Diclofenac RX for pain. Given ENT follow-up as needed. His blood pressure was 148/91, has history of hypertension, not on medication, recommended he follows up with the PCP to be put on medication Staff Physician Addendum: I was working in the ER during the course of this patient's visit. I was available for consultation as needed, but I was not directly involved in the care of this patient. Dragon Disclaimer Dragon Disclaimer This electronic medical record was generated, in whole or in part, using a voice recognition dictation system. Departure Departure Impression: Primary Impression: High blood pressure Additional Impressions: Otitis media Impacted cerumen of left ear Disposition: HOME, SELF-CARE Condition: STABLE Referrals: NO PCP (PCP) TRUDY DRUMMOND MD follow up in the next 1-2 weeks Patient Instructions: Cerumen Impaction-SportsMed, Hypertension, Otitis Media, Adult Additional Instructions: You have left ear infection, we put you on antibiotics. Ensure you complete them. Take a decongestant like pseudoephedrine it will reduce some of the congestion in the ear. Also take Tylenol /Motrin for pain or fever. Please contact the provided ENT in follow-up with the in 1-2 weeks. Follow up with your doctor in 1 week your blood pressure is high. Scripts Diclofenac Potassium (DICLOFENAC POTASSIUM) 50 Mg Tablet 1 TAB PO BID, #20 TAB 0 Refills Prov: MANISHA PICKERING APRN 04/15/18 Pseudoephedrine Hcl (PSEUDOEPHEDRINE) 120 Mg Tablet.er 1 TAB PO BID, #20 TAB Prov: MANISHA PICKERING APRN 04/15/18 Amoxicillin (AMOXICILLIN) 875 Mg Tablet 1 TAB PO BID, #20 TAB Prov: MANISHA PICKERING APRN 04/15/18 Problem Qualifiers Primary Impression: High blood pressure Hypertension type: unspecified Qualified Codes: I10 - Essential (primary) hypertension Additional Impressions: Otitis media Otitis media type: other nonsuppurative Chronicity: acute Laterality: left Recurrence: not specified as recurrent Qualified Codes: H65.192 - Other acute nonsuppurative otitis media, left ear MANISHA PICKERING APRN Apr 15, 2018 16:44 MADISYN SAM MD Apr 18, 2018 02:00
[2018-04-15] MEDS ORDERED: AMOX875T PO (16:55)
[2018-04-15] MEDS ORDERED: DICL50TA2 PO (16:55)
[2018-04-15] MEDS ORDERED: PSEU120T58 PO (16:55)
== END 2018-04-15 17:25 | disposition home or self-care (01) ==
LOC: ER 14:01
DX: H61.22 Impacted cerumen, left ear (principal); H66.92 Otitis media, unspecified, left ear; R03.0 Elevated blood-pressure reading, without diagnosis of hypertension; Z88.5 Allergy status to narcotic agent
CPT/HCPCS: 99283

== ENCOUNTER 2019-01-07 19:54 | Emergency (ER) | payer OTHER ==
[~2019-01-07] VITALS: Ht 175.3 cm; Wt 91.2 kg
[~2019-01-07 19:54] MED LIST changes: +DICL50TA2 PO; +HYDR-3164 PO; -HYDR-971 PO; +PSEU120T58 PO
[2019-01-07 20:00] VITALS: BP 161/91
--- NOTE | 2019-01-07 21:05 | PHYS DOC ---
Past Medical History Past Medical History: No Pertinent History Past Surgical History: No Surgical History Alcohol Use: Occasionally Drug Use: None Adult General Chief Complaint Chief Complaint: GROIN PAIN HPI HPI Patient is a 48 year old Afro-[place] male who presents with right suprapubic groin pain since yesterday. 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 He feels as though he strained a muscle. Pain is worse with palpation, and ambulation. Pain is nonradiating. Denies testicular pain, swelling, tenderness. No penile discharge or drainage. No urinary frequency urgency or hematuria. No flank pain, or history of kidney stones. No other acute symptoms or complaints. [] Review of Systems Review of Systems Review of symptoms . All other review symptoms are negative. All other systems were reviewed and found to be within normal limits, except as documented in this note. Allergies Allergies Allergies Coded Allergies Type Severity Reaction Last Updated Verified amoxicillin Allergy Unknown 01/07/19 Yes clavulanic acid Allergy Unknown 01/07/19 Yes Physical Exam Physical Exam Constitutional: Well developed, well nourished, no acute distress, non-toxic appearance. [] HENT: Normocephalic, atraumatic, bilateral external ears normal, oropharynx moist, no oral exudates, nose normal. [] Eyes: PERRLA, EOMI, conjunctiva normal, no discharge. [] Neck: Normal range of motion, no tenderness, supple, no stridor. [] Cardiovascular:Heart rate regular rhythm, no murmur [] Lungs & Thorax: Bilateral breath sounds clear to auscultation [] Abdomen: Bowel sounds normal, soft, no tenderness, no masses, no pulsatile masses. [] : No cyanosis, no penile discharge, testicular exam, no masses, tenderness, cremasteric reflexes intact. No palpable inguinal hernias. Mild suprapubic pain, tenderness reproducing symptoms and complains just above base of penis.[] Back: No tenderness, no CVA tenderness. [] Extremities: No tenderness, no cyanosis, no clubbing, ROM intact, no edema. [] Neurologic: Alert and oriented X 3, normal motor function, normal sensory function, no focal deficits noted. [] Psychologic: Affect normal, judgement normal, mood normal. [] Current Patient Data Vital Signs Vital Signs Date Time Temp Pulse Resp B/P (MAP) Pulse Ox O2 Delivery O2 Flow Rate FiO2 01/07/19 20:00 98.6 84 16 161/91 (114) 97 Room Air 98.6 Lab Values Laboratory Tests Test 01/07/19 21:15 Urine Collection Type Unknown Urine Color Yellow Urine Clarity Cloudy Urine pH 6.0 Urine Specific [place] 1.025 Urine Protein Negative mg/dL (NEG-TRACE) Urine Glucose (UA) Negative mg/dL (NEG) Urine Ketones (Stick) Negative mg/dL (NEG) Urine Blood Negative (NEG) Urine Nitrite Negative (NEG) Urine Bilirubin Negative (NEG) Urine Urobilinogen Dipstick 1.0 mg/dL (0.2 mg/dL) Urine Leukocyte Esterase Negative (NEG) Urine RBC Occ /HPF (0-2) Urine WBC 0 /HPF (0-4) Urine Squamous Epithelial Cells Few /LPF Urine Bacteria 0 /HPF (0-FEW) Urine Mucus Mod /LPF EKG EKG [] Radiology/Procedures Radiology/Procedures [] Course & Med Decision Making Course & Med Decision Making Pertinent Labs and Imaging studies reviewed. (See chart for details) [Reproducible suprapubic groin pain in the setting of recent heavy lifting. No identifiable hernias on physical exam. A negative. Recommend supportive care with watchful waiting and PCP follow-up. Courtesy work note provided. Return precautions reviewed.] Dragon Disclaimer Dragon Disclaimer This electronic medical record was generated, in whole or in part, using a voice recognition dictation system. Departure Departure Impression: Primary Impression: Groin pain Disposition: 01 HOME, SELF-CARE Condition: GOOD Referrals: NO PCP (PCP) Patient Instructions: Groin Site Care Additional Instructions: Please go home and rest. Avoid physical strenuous physical activity and heavy lifting. Take Tylenol ibuprofen for pain and apply to ice to affected area for 20-30 minutes every 3 hours. Follow-up with PCP in 3 days for reevaluation. Return to the ED if new or worsening symptoms. AGUSTIN HICKS DO Jan 07, 2019 21:04
[2019-01-07 21:24] LABS: BILIRUBIN,URINE NEGATIVE (NEG); CLARITY,URINE CLOUDY; COLOR,URINE YELLOW; NITRITE,URINE NEGATIVE (NEG); PROTEIN,URINE NEGATIVE (NEG-TRACE)
[2019-01-07 21:32] LABS: BACTERIA,URINE 0 /HPF (0-FEW); RBC,URINE OCC /HPF (0-2); SQUAMOUS EPITHELIAL CELL,UR FEW /LPF; WBC,URINE 0 /HPF (0-4)
== END 2019-01-07 21:51 | disposition home or self-care (01) ==
LOC: ER 19:54
DX: R10.31 Right lower quadrant pain (principal); Z88.1 Allergy status to other antibiotic agents
CPT/HCPCS: 81001; 99283

== ENCOUNTER 2020-01-05 16:37 | Emergency (ER) | payer OTHER ==
[~2020-01-05] VITALS: Ht 175.3 cm; Wt 88.2 kg
[2020-01-05] MEDS ORDERED: IV NORMAL SALINE 1000ML BAG 1,000 ML IV ONE (16:45)
[2020-01-05 17:19] LABS: BASO # 0.1 x10^3/uL (0.0-0.2); BASO % 1 % (0-3); EOS # 0.3 x10^3/uL (0.0-0.7); EOS % 3 % (0-3); HEMOGLOBIN 12.6 g/dL (13.0-17.5); LYMPH # 2.7 x10^3/uL (1.0-4.8); LYMPH % 29 % (24-48); MEAN CORPUSCULAR HEMOGLOBIN 29 pg (25-35); MEAN CORPUSCULAR HGB CONC 33 g/dL (31-37); MEAN CORPUSCULAR VOLUME 87 fL (79-100); MONO # 0.6 x10^3/uL (0.0-1.1); MONO % 6 % (0-9); NEUT # 5.7 x10^3/uL (1.8-7.7); NEUT % 61 % (31-73); PLATELET COUNT 241 x10^3/uL (140-400); RED BLOOD COUNT 4.37 x10^6/uL (4.30-5.70); RED CELL DISTRIBUTION WIDTH 14.9 % (11.5-14.5); WHITE BLOOD COUNT 9.4 x10^3/uL (4.0-11.0)
[2020-01-05 17:38] LABS: CALCIUM 8.5 mg/dL (8.5-10.1); GFR 96.9; POTASSIUM 3.4 mmol/L (3.5-5.1)
[2020-01-05 17:50] LABS: BILIRUBIN,URINE NEGATIVE (NEG); CLARITY,URINE CLEAR; COLOR,URINE YELLOW; NITRITE,URINE NEGATIVE (NEG); PROTEIN,URINE 30 mg/dL (NEG-TRACE)
[2020-01-05 17:53] LABS: BACTERIA,URINE 0 /HPF (0-FEW); RBC,URINE 0 /HPF (0-2); WBC,URINE RARE /HPF (0-4)
[2020-01-05 18:00] VITALS: BP 168/98
--- NOTE | 2020-01-05 18:09 | PHYS DOC ---
Past Medical History Past Medical History: No Pertinent History Past Surgical History: No Surgical History Smoking Status: Current Some Day Smoker Alcohol Use: Occasionally Drug Use: None General Adult EDM: Chief Complaint: NEAR SYNCOPE HPI: HPI: Patient is a 49 year old male who presents with presyncopal episode. Patient has been working outside all day cutting down a tree. He suddenly felt very dizzy and almost passed out. He became very diaphoretic. He initially was hypotensive on scene. He states he is already feeling significantly better. He denies any chest pain, shortness of breath, headache, numbness, weakness. Review of Systems: Review of Systems: General: Denies fever, chills, sweats, fatigue Eyes: Denies drainage, blurred vision HENT: Denies rhinorrhea, sore throat Respiratory: Denies cough, shortness of breath, wheezing Cardiac: Denies edema, palpitations, chest pain GI: Denies abdominal pain, N/V MSK: Denies back pain, neck pain Skin: Denies rash, jaundice Neuro: Denies headache, dizziness reports lightheadedness Psychiatric: Denies SI/HI Heart Score: Risk Factors: Risk Factors: DM, Current or recent (<one month) smoker, HTN, HLP, family history of CAD, obesity. Risk Scores: Score 0 - 3: 2.5% MACE over next 6 weeks - Discharge Home Score 4 - 6: 20.3% MACE over next 6 weeks - Admit for Clinical Observation Score 7 - 10: 72.7% MACE over next 6 weeks - Early Invasive Strategies Current Medications: Current Medications Medications (Trade) Dose Ordered Sig/Penny Start Time Stop Time Status Last Admin Dose Admin Sodium Chloride 1,000 ml @ 0 mls/hr 1X ONCE 01/05/20 16:45 01/05/20 16:48 DC 01/05/20 17:10 1,000 MLS/HR Allergies: Allergies: Allergies Coded Allergies Type Severity Reaction Last Updated Verified amoxicillin Allergy Unknown 01/07/19 Yes clavulanic acid Allergy Unknown 01/07/19 Yes Physical Exam: PE: Constitutional: Well developed, well nourished, Cooperative, NAD, non-toxic appearing HEENT: Normocephalic, atraumatic, oropharynx moist, EOMI, PERRL, no drainage from eyes, normal conjunctiva Neck: Supple, normal range of motion, no stridor Cardiovascular: RRR, 2+ radial pulses bilaterally, no edema Respiratory: CTA bilaterally, no respiratory distress, no wheezing/crackles Abdomen: Soft, nontender, nondistended, no masses Skin: Warm, dry, intact Extremities: No obvious deformities Neurologic: Alert and Oriented x3, motor and sensory function grossly normal, no focal deficits Psychologic: Normal affect, normal judgment, normal mood. No SI/HI Current Patient Data: Labs: Laboratory Tests Test 01/05/20 17:10 01/05/20 17:40 White Blood Count 9.4 x10^3/uL (4.0-11.0) Red Blood Count 4.37 x10^6/uL (4.30-5.70) Hemoglobin 12.6 g/dL (13.0-17.5) L Hematocrit 38.0 % (39.0-53.0) L Mean Corpuscular Volume 87 fL (79-100) Mean Corpuscular Hemoglobin 29 pg (25-35) Mean Corpuscular Hemoglobin Concent 33 g/dL (31-37) Red Cell Distribution Width 14.9 % (11.5-14.5) H Platelet Count 241 x10^3/uL (140-400) Neutrophils (%) (Auto) 61 % (31-73) Lymphocytes (%) (Auto) 29 % (24-48) Monocytes (%) (Auto) 6 % (0-9) Eosinophils (%) (Auto) 3 % (0-3) Basophils (%) (Auto) 1 % (0-3) Neutrophils # (Auto) 5.7 x10^3/uL (1.8-7.7) Lymphocytes # (Auto) 2.7 x10^3/uL (1.0-4.8) Monocytes # (Auto) 0.6 x10^3/uL (0.0-1.1) Eosinophils # (Auto) 0.3 x10^3/uL (0.0-0.7) Basophils # (Auto) 0.1 x10^3/uL (0.0-0.2) Sodium Level 139 mmol/L (136-145) Potassium Level 3.4 mmol/L (3.5-5.1) L Chloride Level 102 mmol/L (98-107) Carbon Dioxide Level 27 mmol/L (21-32) Anion Gap 10 (6-14) Blood Urea Nitrogen 8 mg/dL (8-26) Creatinine 1.0 mg/dL (0.7-1.3) Estimated GFR (Cockcroft-Gault) 96.9 Glucose Level 133 mg/dL (70-99) H Calcium Level 8.5 mg/dL (8.5-10.1) Troponin I Quantitative < 0.017 ng/mL (0.000-0.055) Urine Collection Type Unknown Urine Color Yellow Urine Clarity Clear Urine pH 6.0 (<5.0-8.0) Urine Specific [place] 1.020 (1.000-1.030) Urine Protein 30 mg/dL (NEG-TRACE) Urine Glucose (UA) Negative mg/dL (NEG) Urine Ketones (Stick) Negative mg/dL (NEG) Urine Blood Negative (NEG) Urine Nitrite Negative (NEG) Urine Bilirubin Negative (NEG) Urine Urobilinogen Dipstick 1.0 mg/dL (0.2 mg/dL) Urine Leukocyte Esterase Negative (NEG) Urine RBC 0 /HPF (0-2) Urine WBC Rare /HPF (0-4) Urine Squamous Epithelial Cells None /LPF Urine Bacteria 0 /HPF (0-FEW) Laboratory Tests 01/05/20 17:10 Laboratory Tests 01/05/20 17:10 Vital Signs: Vital Signs Date Time Temp Pulse Resp B/P (MAP) Pulse Ox O2 Delivery O2 Flow Rate FiO2 01/05/20 16:37 98.7 92 20 140/69 (92) 96 Room Air 98.7 EKG: EKG: [] Radiology/Procedures: Radiology/Procedures: [] Course & Med Decision Making: Course & Med Decision Making Pertinent Labs and Imaging studies reviewed. (See chart for details) Patient is a 49-year-old male who presents to the emergency room after having a presyncopal episode. Patient initially was hypotensive on scene, however he is normotensive upon arrival to the emergency room. It is possible he had a vagal episode. It is likely that this may be heat related. Work-up was ordered including EKG, CBC, BMP, troponin. Patient was given fluids. He is feeling significantly better after fluids. Work-up is normal. He would like to go home. Patient's test results and vitals while in the ED were fully reviewed and discussed with the patient. Patient is stable and at this time does not need admission to the hospital. We have discussed strict return precautions and the importance of following up with their Primary Care Physician. Patient stated understanding and was given an opportunity to ask any questions. Donte Disclaimer: Donte Disclaimer: This electronic medical record was generated, in whole or in part, using a voice recognition dictation system. Departure Departure Impression: Primary Impression: Lightheaded Additional Impression: Dehydration Disposition: 01 HOME, SELF-CARE Condition: GOOD Patient Instructions: Heat-Related Illness, Dizziness, [id number]-eo-[id number] ARCHIE CALLE MD Jan 05, 2020 18:09
--- NOTE | 2020-01-06 07:28 | EKG ---
[facility] [address] [place] [address] Test Date: 2020-01-05 Test Time: 16:43:55 Pat Name: YAIR MURRY Department: Room: Gender: M Flight Purser: : 1970 Requested By: ARCHIE CALLE Order Number: [id number] Reading MD: Sven Montoya Measurements Intervals [place] Rate: 89 P: 48 VT: 176 QRS: 31 QRSD: 84 T: 88 QT: 362 QTc: 441 Interpretive Statements SINUS RHYTHM INCOMPLETE RIGHT BUNDLE BRANCH BLOCK Electronically Signed On 01-06-2020 12:03:26 CDT by Sven Montoya
== END 2020-01-05 18:15 | disposition home or self-care (01) ==
LOC: ER 16:37
DX: R42 Dizziness and giddiness (principal); E86.0 Dehydration; R55 Syncope and collapse; F17.200 Nicotine dependence, unspecified, uncomplicated; Z88.0 Allergy status to penicillin; Z88.8 Allergy status to other drugs, medicaments and biological substances
CPT/HCPCS: 36415; 80048; 81001; 84484; 85025; 93005; 96360; 99284; J7030

== ENCOUNTER 2020-01-20 07:27 | Emergency (ER) | payer OTHER ==
[~2020-01-20] VITALS: Ht 175.3 cm; Wt 81.2 kg
[2020-01-20] MEDS ORDERED: LEVO750T31 PO (07:44)
[2020-01-20] MEDS ORDERED: ACET-704 PO (07:44)
[2020-01-20] MEDS ORDERED: PRED20TA PO (07:44)
[2020-01-20] MEDS ORDERED: DEXAMETHASONE 4 MG TABLET PO ONE (07:45)
--- NOTE | 2020-01-20 07:45 | PHYS DOC ---
Past Medical History Past Medical History: No Pertinent History Past Surgical History: No Surgical History Smoking Status: Current Some Day Smoker Alcohol Use: Occasionally Drug Use: None General Adult EDM: Chief Complaint: Congestion HPI: HPI: Patient is a 49 year old [f__sex] who presents with [] Review of Systems: Review of Systems: Constitutional: Denies fever or chills. [] Eyes: Denies change in visual acuity. [] HENT: Denies nasal congestion or sore throat. [] Respiratory: Denies cough or shortness of breath. [] Cardiovascular: Denies chest pain or edema. [] GI: Denies abdominal pain, nausea, vomiting, bloody stools or diarrhea. [] : Denies dysuria. [] Musculoskeletal: Denies back pain or joint pain. [] Integument: Denies rash. [] Neurologic: Denies headache, focal weakness or sensory changes. [] Endocrine: Denies polyuria or polydipsia. [] Lymphatic: Denies swollen glands. [] Psychiatric: Denies depression or anxiety. [] Heart Score: Risk Factors: Risk Factors: DM, Current or recent (<one month) smoker, HTN, HLP, family history of CAD, obesity. Risk Scores: Score 0 - 3: 2.5% MACE over next 6 weeks - Discharge Home Score 4 - 6: 20.3% MACE over next 6 weeks - Admit for Clinical Observation Score 7 - 10: 72.7% MACE over next 6 weeks - Early Invasive Strategies Current Medications: Current Medications Medications (Trade) Dose Ordered Sig/Penny Start Time Stop Time Status Last Admin Dose Admin Dexamethasone (Decadron) 10 mg 1X ONCE 01/20/20 07:45 01/20/20 07:46 UNV Levofloxacin (Levaquin) 750 mg 1X ONCE 01/20/20 07:45 01/20/20 07:46 UNV Allergies: Allergies: Allergies Coded Allergies Type Severity Reaction Last Updated Verified amoxicillin Allergy Unknown 01/07/19 Yes clavulanic acid Allergy Unknown 01/07/19 Yes Physical Exam: PE: Constitutional: Well developed, well nourished, no acute distress, non-toxic appearance. [] HENT: Normocephalic, atraumatic, bilateral external ears normal, oropharynx moist, no oral exudates, nose normal. [] Eyes: PERRLA, EOMI, conjunctiva normal, no discharge. [] Neck: Normal range of motion, no tenderness, supple, no stridor. [] Cardiovascular:Heart rate regular rhythm, no murmur [] Lungs & Thorax: Bilateral breath sounds clear to auscultation [] Abdomen: Bowel sounds normal, soft, no tenderness, no masses, no pulsatile masses. [] Skin: Warm, dry, no erythema, no rash. [] Back: No tenderness, no CVA tenderness. [] Extremities: No tenderness, no cyanosis, no clubbing, ROM intact, no edema. [] Neurologic: Alert and oriented X 3, normal motor function, normal sensory function, no focal deficits noted. [] Psychologic: Affect normal, judgement normal, mood normal. [] EKG: EKG: [] Radiology/Procedures: Radiology/Procedures: [] Course & Med Decision Making: Course & Med Decision Making Pertinent Labs and Imaging studies reviewed. (See chart for details) [] Dragon Disclaimer: Dragon Disclaimer: This electronic medical record was generated, in whole or in part, using a voice recognition dictation system. Departure Departure Impression: Primary Impression: Acute sinusitis Qualified Codes: J01.01 - Acute recurrent maxillary sinusitis Additional Impression: Hypertension Qualified Codes: I10 - Essential (primary) hypertension Disposition: HOME, SELF-CARE Condition: STABLE Referrals: NO PCP (PCP) TRUDY DRUMMOND MD Patient Instructions: Hypertension, [id number], Sinusitis, [id number] Additional Instructions: Please re-check your blood pressure. You may require treatment. Please follow up closely with a primary care provider (ie family practice, internal medicine) for further evaluation. Scripts Acetaminophen With Codeine (TYLENOL WITH CODEINE #3 TABLET) 1 Each Tablet 1 TAB PO PRN Q6HRS PRN for pain MDD 4 Tablet(s), #10 TAB 0 Refills Prov: THERESA ALFARO DO 01/20/20 Prednisone (PREDNISONE) 20 Mg Tablet 2 TAB PO DAILY, #8 TAB Start this prescription tomorrow, Sunday01/21/20 Prov: THERESA ALFARO DO 01/20/20 Levofloxacin (LEVAQUIN) 750 Mg Tablet 1 TAB PO DAILY, #6 TAB 0 Refills Start this prescription tomorrow, Sunday01/21/20 Prov: THERESA ALFARO DO 01/20/20 Justicifation of Admission Dx: Justifications for Admission: Justification of Admission Dx: N/A THERESA ALFARO DO Jan 20, 2020 07:45
[2020-01-20 07:55] VITALS: BP 171/98
== END 2020-01-20 08:01 | disposition home or self-care (01) ==
LOC: ER 07:27
DX: J01.01 Acute recurrent maxillary sinusitis (principal); I10 Essential (primary) hypertension; F17.200 Nicotine dependence, unspecified, uncomplicated; Z88.1 Allergy status to other antibiotic agents; Z88.8 Allergy status to other drugs, medicaments and biological substances
CPT/HCPCS: 99283; J8540

== ENCOUNTER 2020-09-07 09:37 | Emergency (ER) | payer OTHER ==
[~2020-09-07] VITALS: Ht 176.5 cm; Wt 89.5 kg
[~2020-09-07 09:37] MED LIST changes: -CLIN300C8 PO; +CLIN300C9 PO; +LEVO750T31 PO; -LISI-338 PO; +LISI-517 PO; +PRED20TA PO
--- NOTE | 2020-09-07 10:00 | PHYS DOC ---
Past Medical History Past Medical History: Other Additional Past Medical Histor: Seasonal allergies Past Surgical History: No Surgical History Smoking Status: Current Some Day Smoker Alcohol Use: Occasionally Drug Use: None General Adult EDM: Chief Complaint: BACK PAIN OR INJURY HPI: HPI: Patient is a 49 year old male who presents with right mid lower back that hurts with movement. He states about 4 days ago he bent over and he felt the pain. He states is kind of a dull pain. Patient also has left trapezius muscle with movement that he has gotten intermittently over the last year. He states that he has degenerative disc disease. He also has a history of smoking and seasonal allergies. He states he is been taking ibuprofen but only helps slightly. 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 Currently rates his pain a 6 out of 10 just sitting. He states if he sits a certain way the pain goes away. He states that it does not radiate or move. Patient denies focal weakness, loss of bowel bladder, urinary symptoms, blood in his urine, nausea, vomiting, diarrhea, constipation, chest pain, shortness of air, headache, dizziness, vision changes, numbness or tingling. Review of Systems: Review of Systems: Constitutional: Denies fever or chills. [] Eyes: Denies change in visual acuity. [] HENT: Denies nasal congestion or sore throat. [] Respiratory: Denies cough or shortness of breath. [] Cardiovascular: Denies chest pain or edema. [] GI: Denies abdominal pain, nausea, vomiting, bloody stools or diarrhea. [] : Denies dysuria. [] Musculoskeletal: +Right back back pain or + left trapezius joint pain. [] Integument: Denies rash. [] Neurologic: Denies headache, focal weakness or sensory changes. [] Endocrine: Denies polyuria or polydipsia. [] Lymphatic: Denies swollen glands. [] Psychiatric: Denies depression or anxiety. [] Heart Score: Risk Factors: Risk Factors: DM, Current or recent (<one month) smoker, HTN, HLP, family history of CAD, obesity. Risk Scores: Score 0 - 3: 2.5% MACE over next 6 weeks - Discharge Home Score 4 - 6: 20.3% MACE over next 6 weeks - Admit for Clinical Observation Score 7 - 10: 72.7% MACE over next 6 weeks - Early Invasive Strategies Allergies: Allergies: Allergies Coded Allergies Type Severity Reaction Last Updated Verified amoxicillin Allergy Unknown 01/07/19 Yes clavulanic acid Allergy Unknown 01/07/19 Yes tramadol Adverse Reaction Unknown dizzy 01/20/20 Yes Physical Exam: PE: Constitutional: Well developed, well nourished, no acute distress, non-toxic appearance. [] HENT: Normocephalic, atraumatic, bilateral external ears normal, oropharynx moist, no oral exudates, nose normal. [] Eyes: PERRLA, EOMI, conjunctiva normal, no discharge. [] Neck: Normal range of motion, no tenderness, supple, no stridor. [] Cardiovascular:Heart rate regular rhythm, no murmur [] Lungs & Thorax: Bilateral breath sounds clear to auscultation [] Abdomen: Bowel sounds normal, soft, no tenderness, no masses, no pulsatile masses. [] Skin: Warm, dry, no erythema, no rash. [] Back: No tenderness, no CVA tenderness. [] Extremities: No tenderness, no cyanosis, no clubbing, ROM intact, no edema. [] Neurologic: Alert and oriented X 3, normal motor function, normal sensory function, no focal deficits noted. [] Psychologic: Affect normal, judgement normal, mood normal. Normal physical exam [] EKG: EKG: [] Radiology/Procedures: Radiology/Procedures: [] Course & Med Decision Making: Course & Med Decision Making Pertinent Labs and Imaging studies reviewed. (See chart for details) See HPI. No CVA tenderness and no tenderness to his back with palpation. Patient is ambulatory with a steady gait. Denies any saddle paresthesia or loss of bowel bladder. Speaks in full complete sentences. Skin pink warm and dry. Alert and oriented x4. No neck stiffness or fevers. Patient has full range of motion of his neck. No tenderness over the left trapezius area but it is painful more so with movement. No joint laxity or swelling or deformities. Full range of motion of all joints. No focal bony spinal tenderness. Patient does not remember a certain injury. Urinalysis show no infection or blood. Patient will be given muscle relaxer, Medrol Dosepak, hydrocodone he can continue taking ibuprofen. [] Dragon Disclaimer: Dragon Disclaimer: This electronic medical record was generated, in whole or in part, using a voice recognition dictation system. Departure Departure Impression: Primary Impression: Back pain Qualified Codes: M54.5 - Low back pain Additional Impression: Shoulder pain, left Qualified Codes: M25.512 - Pain in left shoulder; G89.29 - Other chronic pain Disposition: DC HOME SELF CARE/HOMELESS Condition: STABLE Referrals: NO PCP (PCP) ALAINA FRANK MD Patient Instructions: Muscle Strain Additional Instructions: Follow up with primary care provider or orthopedic. Take medication as prescribed and with food. Use a heating pad to help with pain. Scripts Cyclobenzaprine Hcl (CYCLOBENZAPRINE HCL) 10 Mg Tablet 1 TAB PO TID for 7 Days, #21 TAB Prov: CYRUS BERRIOS APRN 09/07/20 Methylprednisolone (MEDROL) 4 Mg Tab.ds.pk 1 PKG PO UD, #1 PKG Prov: CYRUS BERRIOS APRN 09/07/20 Ibuprofen (IBUPROFEN) 600 Mg Tablet 600 MG PO PRN Q6HRS PRN for INFLAMMATION, #24 TAB Prov: CYRUS BERRIOS EXPERIMENTAL WELDER 09/07/20 CYRUS BERRIOS APRN Sep 07, 2020 10:00
[2020-09-07 10:02] LABS: BILIRUBIN,URINE NEGATIVE (NEG); CLARITY,URINE CLEAR; COLOR,URINE YELLOW; NITRITE,URINE NEGATIVE (NEG); PH,URINE 7.5 (<5.0-8.0); PROTEIN,URINE NEGATIVE (NEG-TRACE)
[2020-09-07 10:08] LABS: BACTERIA,URINE 0 /HPF (0-FEW); RBC,URINE 0 /HPF (0-2); WBC,URINE 0 /HPF (0-4)
[2020-09-07] MEDS ORDERED: METH4TAB2 PO (10:15)
[2020-09-07] MEDS ORDERED: IBUP-1007 PO (10:15)
[2020-09-07] MEDS ORDERED: CYCL10TA2 PO (10:15)
[2020-09-07 10:21] VITALS: BP 160/83
== END 2020-09-07 10:23 | disposition home or self-care (01) ==
LOC: ER 09:37
DX: M54.5 Low back pain (principal); M25.512 Pain in left shoulder; G89.29 Other chronic pain; Z87.891 Personal history of nicotine dependence; Z88.1 Allergy status to other antibiotic agents; Z88.8 Allergy status to other drugs, medicaments and biological substances
CPT/HCPCS: 81001; 99283

== ENCOUNTER 2020-11-07 06:00 | Emergency (ER) | payer OTHER ==
[~2020-11-07] VITALS: Ht 175.3 cm; Wt 91.0 kg
[~2020-11-07 06:00] MED LIST changes: +CYCL10TA2 PO; +IBUP-1007 PO; +METH4TAB2 PO
[2020-11-07] MEDS ORDERED: DEXAMETHASONE 4 MG TABLET PO ONE (06:45)
[2020-11-07] MEDS ORDERED: PRED20TA PO (06:52)
[2020-11-07] MEDS ORDERED: AZIT250T PO (06:52)
--- NOTE | 2020-11-07 06:52 | PHYS DOC ---
Past Medical History Past Medical History: Other Additional Past Medical Histor: Seasonal allergies, DEGENERATIVE DISC DISEASE Past Surgical History: No Surgical History Smoking Status: Current Some Day Smoker Alcohol Use: Occasionally Drug Use: None General Adult EDM: Chief Complaint: Congestion HPI: HPI: Mookie is a 49-year-old male with a remote history of pneumonia, seasonal allergies, and several episodes of sinusitis. The patient states that his symptoms started to worsen on . He states that he has a "scratching" pain in his throat, for which he rates as 10 out of 10 in severity, but 7 out of 10 with ibuprofen. He states that pain is burning in nature, and his Flonase has not been helping. His pain gets worse with inspiration, but the patient states that it is just the air rushing by the mucous membranes. Mookie notes no palliative components. He denies any chest pain or shortness of breath at this time. He has had no fever, no chills, and no exposures to COVID-19. Review of Systems: Review of Systems: Constitutional: Denies fever or chills Eyes: Denies redness or eye pain HENT: Reports nasal congestion and sore throat Respiratory: Denies cough or shortness of breath Cardiovascular: Denies chest pain or palpitations GI: Denies abdominal pain, nausea, or vomiting : Denies dysuria or hematuria Musculoskeletal: Denies back pain or joint pain Integument: Denies rash or skin lesions Neurologic: Denies headache, focal weakness or sensory changes Complete systems were reviewed and found to be within normal limits, except as documented in this note. Heart Score: C/O Chest Pain: N/A Allergies: Allergies: Allergies Coded Allergies Type Severity Reaction Last Updated Verified amoxicillin Allergy Unknown 01/07/19 Yes clavulanic acid Allergy Unknown 01/07/19 Yes tramadol Adverse Reaction Unknown dizzy 01/20/20 Yes Physical Exam: PE: Constitutional: Well developed, well nourished, no acute distress, non-toxic appearance, voice is hoarse HENT: Normocephalic, atraumatic, bilateral nasal turbinate irritation. Right tympanic membrane not visible due to earwax. Translucent pale correa appearing left tympanic membrane. Eyes: PERRL, EOMI, conjunctiva normal, no discharge, no eye pain with extraocular muscle use Neck: Normal range of motion, no tenderness, supple, no lymphadenopathy Lungs & Thorax: No respiratory distress, equal chest rise and fall Abdomen: Soft, no tenderness Skin: Warm, dry, no erythema, no rash Back: No tenderness, no CVA tenderness Extremities: No tenderness, ROM intact, no edema Neurologic: Alert and oriented X 3, normal motor function, normal sensory function, no focal deficits noted Psychologic: Affect normal, judgment normal EKG: EKG: [] Radiology/Procedures: Radiology/Procedures: [] Course & Med Decision Making: Course & Med Decision Making Mookie is a 49-year-old male with a history of chronic seasonal sinusitis. He is not a diabetic. His symptoms started on , and have worsened since then. He describes sinus pressure, and congestion, along with a sore throat. Normally, his Flonase does help with the symptoms; however, it has not helped this time. Patient denies any fevers, chills, or other systemic symptoms. The patient notes that he has a sensitivity to Augmentin, which causes him to have heavy diarrhea. It was discussed with the patient, that usually antibiotics are not prescribed before sinusitis before the 10-day blu. Patient was prescribed prednisone to help with the symptoms, and was given a prescription for azithromycin. He was instructed to only fill the azithromycin prescription if his symptoms did not get better after 48 hours with the prednisone. Patient stable for discharge with outpatient follow-up with PCP. Discussed findings and plan with patient, who acknowledges understanding and agreement. Donte Disclaimer: Donte Disclaimer: This electronic medical record was generated, in whole or in part, using a voice recognition dictation system. Departure Departure Impression: Primary Impression: Acute sinusitis Qualified Codes: J01.90 - Acute sinusitis, unspecified Disposition: HOME SELF CARE/HOMELESS Condition: STABLE Referrals: NO PCP (PCP) TRUDY DRUMMOND MD Patient Instructions: Sinusitis, [id number] Additional Instructions: Hold antibiotics for 48 hours. If symptoms worsen or for fever > 100.3 F after 48 hours then start antibiotics as prescribed. Scripts Prednisone (PREDNISONE) 20 Mg Tablet 2 TAB PO DAILY, #8 TAB Start this prescription tomorrow, Sunday11/08/20 Prov: DOMINICTHERESA Knutson DO 11/07/20 Azithromycin (ZITHROMAX) 250 Mg Tablet 1 PKG PO UD for Sinusitis, #6 TAB Take 2 tablets on day 1 and then 1 tablet each day for the next 4 days as directed Prov: THERESA ALFARO DO 11/07/20 THERESA ALFARO DO Nov 07, 2020 06:52
[2020-11-07 06:53] VITALS: BP 168/86
== END 2020-11-07 07:08 | disposition home or self-care (01) ==
LOC: ER 06:00
DX: J01.80 Other acute sinusitis (principal); R07.0 Pain in throat; R09.81 Nasal congestion; F17.200 Nicotine dependence, unspecified, uncomplicated; Z88.1 Allergy status to other antibiotic agents; Z88.8 Allergy status to other drugs, medicaments and biological substances
CPT/HCPCS: 99281

== ENCOUNTER 2021-01-18 10:01 | Emergency (ER) | payer OTHER ==
[~2021-01-18] VITALS: Ht 175.3 cm; Wt 92.8 kg
[~2021-01-18 10:01] MED LIST changes: +AZIT250T PO
[2021-01-18 10:07] VITALS: BP 158/109
[2021-01-18] MEDS ORDERED: AMOX1TAB11 PO (10:48)
--- NOTE | 2021-01-18 10:48 | ED.ADGEN ---
Past Medical History Past Medical History: Hypertension, Additional Disease, Other Additional Past Medical Histor: Seasonal allergies Past Surgical History: No Surgical History Smoking Status: Current Every Day Smoker Additional Information: VAPES Alcohol Use: Occasionally Drug Use: None General Adult EDM: Chief Complaint: HEADACHE HPI: HPI: Patient is a 50 year old AA male who presents to the emergency department with complaints of nasal congestion, sinus pressure, sinus headache, and frequent throat clearing for about the last 10 days. Patient reports there was a day he felt like he had a fever but he did not measure it. He denies any chest pain, shortness of breath, wheezing, nausea, vomiting, diarrhea, abdominal pain, body aches, or rash. He denies any loss of taste or smell. Patient states he has been taking Claritin-D and using Flonase for relief of his allergy symptoms and states that he feels like it is progressed to an infection now. Patient reports history of frequent sinus infections. He denies any vision changes, numbness, tingling, weakness, dizziness, or ear pain. He currently rates his headache a 8 out of 10 on the pain scale and describes it as a constant pressure. He denies any alleviating or exacerbating factors. Review of Systems: Review of Systems: Complete ROS is negative unless otherwise noted in HPI. Allergies: Allergies: Allergies Coded Allergies Type Severity Reaction Last Updated Verified amoxicillin Adverse Reaction Mild diarrhea 01/18/21 Yes clavulanic acid Adverse Reaction Mild diarrhea 01/18/21 Yes tramadol Adverse Reaction Unknown dizzy 01/20/20 Yes Physical Exam: PE: See Above Constitutional: Well developed, well nourished, no acute distress, non-toxic appearance. [] HENT: Normocephalic, atraumatic, bilateral external ears normal, bilateral TMs normal; nose congested with erythema and edema of bilateral nasal turbinates, cobblestone appearance of posterior pharynx Eyes: PERRLA, EOMI, conjunctiva normal, no discharge. [] Neck: Normal range of motion, supple, nontender, no stridor. [] Cardiovascular:Heart rate regular rhythm Lungs & Thorax: Respirations even and unlabored, no retractions, no respiratory distress Skin: Warm, dry, no erythema, no rash. [] Extremities: No cyanosis, ROM intact, no edema. [] Neurologic: Alert and oriented X 3, no focal deficits noted. [] Psychologic: Affect normal, judgement normal, mood normal. [] Current Patient Data: Vital Signs: Vital Signs Date Time Temp Pulse Resp B/P (MAP) Pulse Ox O2 Delivery O2 Flow Rate FiO2 01/18/21 10:07 98.6 94 16 158/109 (125) 96 Room Air 98.6 EKG: EKG: [] Heart Score: C/O Chest Pain: No Risk Scores: Score 0 - 3: 2.5% MACE over next 6 weeks - Discharge Home Score 4 - 6: 20.3% MACE over next 6 weeks - Admit for Clinical Observation Score 7 - 10: 72.7% MACE over next 6 weeks - Early Invasive Strategies Radiology/Procedures: Radiology/Procedures: [] Course & Med Decision Making: Course & Med Decision Making Pertinent Labs and Imaging studies reviewed. (See chart for details) [] Dragon Disclaimer: Dragon Disclaimer: This electronic medical record was generated, in whole or in part, using a voice recognition dictation system. Departure Departure Impression: Primary Impression: Sinus infection Disposition: HOME / SELF CARE / HOMELESS Condition: STABLE Referrals: NO PCP (PCP) TRUDY DRUMMOND MD Patient Instructions: Sinusitis, [id number] Additional Instructions: Fill the prescription(s) and use as directed. Recommend that you take 10 mg of generic Zyrtec (cetirizine) or Claritin at bedtime and use over the counter Flonase (fluticasone) nasal spray 2 sprays each nostril once daily in the morning. You may take Tylenol or ibuprofen as needed for pain/fever. Increase clear fluids. Avoid triggers such as smoke, fragrance, dust, and pollen. Follow-up with ENT for further evaluation, return to the ER if symptoms worsen or fever develops. Scripts Amoxicillin/Potassium Clav (AMOX TR-K CLV 875-125 MG TAB) 1 Each Tablet 1 TAB PO BID for 10 Days, #20 TAB 0 Refills Prov: FRANCOIS ARIAS APRN 01/18/21 Attending Signature I have participated in the care of this patient and I have reviewed and agree with all pertinent clinical information above including history, exam, and recom mendations. Problem Qualifiers Primary Impression: Sinus infection Sinusitis location: maxillary Chronicity: acute Recurrence: recurrent Qualified Codes: J01.01 - Acute recurrent maxillary sinusitis FRANOCIS ARIAS APRN Jan 18, 2021 10:48 MICHAEL TREVINO DO Jan 18, 2021 11:45
== END 2021-01-18 11:10 | disposition home or self-care (01) ==
LOC: ER 10:01
DX: J01.01 Acute recurrent maxillary sinusitis (principal); R51.9 Headache, unspecified; I10 Essential (primary) hypertension; F17.200 Nicotine dependence, unspecified, uncomplicated; Z88.1 Allergy status to other antibiotic agents; Z88.6 Allergy status to analgesic agent; Z88.8 Allergy status to other drugs, medicaments and biological substances
CPT/HCPCS: 99281

== ENCOUNTER 2021-03-18 07:56 | Emergency (ER) | payer OTHER ==
[~2021-03-18] VITALS: Ht 175.3 cm; Wt 93.1 kg
[~2021-03-18 07:56] MED LIST changes: +AMOX1TAB11 PO
[2021-03-18 08:33] VITALS: BP 159/79
--- NOTE | 2021-03-18 11:55 | PHYS DOC ---
Past Medical History Past Medical History: Hypertension, Additional Disease, Other Additional Past Medical Histor: Seasonal allergies Past Surgical History: Other Additional Past Surgical Histo: SINUS SURGERY 03/17/21 Smoking Status: Current Every Day Smoker Alcohol Use: Occasionally Drug Use: None General Adult EDM: Chief Complaint: FACE PROBLEM HPI: HPI: Patient is a 50 year old male with history of sinus surgery (septoplasty internal reduction (yesterday with Dr. Singh who presents with sinus congestion and feeling of shortness of breath. States that he has bloody clots in his sinuses. He is unable to blow his nose due to the restrictions. Feels like he is having trouble breathing out of his mouth. Has been using a Holly pot, but could not tolerate it. He has been taking his oxycodone 5 mg as prescribed. He was unsure what else he could do to clear his nose to be able to breathe more easily. Review of Systems: Review of Systems: Constitutional: Denies fever or chills. [] Eyes: Denies change in visual acuity. [] HENT: +Sinus blood clots, sinus congestion. [] Respiratory: + Shortness of breath related to breathing out of his mouth. denies cough. [] Cardiovascular: Denies chest pain or edema. [] Integument: Denies rash. [] Neurologic: Denies headache, focal weakness or sensory changes. [] Psychiatric: Denies depression or anxiety. [] Remainder of a 10 point review of systems was negative unless otherwise specified. Heart Score: C/O Chest Pain: No Risk Factors: Risk Factors: DM, Current or recent (<one month) smoker, HTN, HLP, family history of CAD, obesity. Risk Scores: Score 0 - 3: 2.5% MACE over next 6 weeks - Discharge Home Score 4 - 6: 20.3% MACE over next 6 weeks - Admit for Clinical Observation Score 7 - 10: 72.7% MACE over next 6 weeks - Early Invasive Strategies Family History: Family History: No pertinent family history Allergies: Allergies: Allergies Coded Allergies Type Severity Reaction Last Updated Verified amoxicillin Adverse Reaction Mild diarrhea 01/18/21 Yes clavulanic acid Adverse Reaction Mild diarrhea 01/18/21 Yes tramadol Adverse Reaction Unknown dizzy 01/20/20 Yes Physical Exam: PE: Constitutional: Well developed, well nourished, no acute distress, non-toxic appearance. [] HENT: Blood clots in bilateral naris. Gauze bandage over his nose. Small amounts of blood running down his oropharynx. Oropharynx otherwise clear. [] Eyes: PERRLA, EOMI, conjunctiva normal, no discharge. [] Neck: Normal range of motion, no tenderness, supple, no stridor. [] Cardiovascular:Heart rate regular rhythm, no murmur [] Lungs & Thorax: Clear to auscultation bilaterally. Normal work of breathing. Satting 100% on room air. [] Abdomen: Bowel sounds normal, soft, no tenderness, no masses, no pulsatile masses. [] Skin: Warm, dry, no erythema, no rash. [] Back: No tenderness, no CVA tenderness. [] Extremities: No tenderness, no cyanosis, no clubbing, ROM intact, no edema. [] Neurologic: Alert and oriented X 3, normal motor function, normal sensory function, no focal deficits noted. [] Psychologic: Affect normal, judgement normal, mood normal. [] Current Patient Data: Vital Signs: Vital Signs Date Time Temp Pulse Resp B/P (MAP) Pulse Ox O2 Delivery O2 Flow Rate FiO2 03/18/21 08:33 98.5 75 20 159/79 (125) 97 Room Air 98.5 EKG: EKG: [] Radiology/Procedures: Radiology/Procedures: [] Course & Med Decision Making: Course & Med Decision Making Pertinent Labs and Imaging studies reviewed. (See chart for details) Patient 50-year-old male who had sinus surgery yesterday with Dr. Singh of [facility] who presents with ongoing nasal congestion, and a sensation of feeling short of breath due to breathing through his mouth. On arrival is afebrile, hemodynamically stable. Satting 100% on room air with normal work of breathing. Lung sounds are clear bilaterally. Vital signs are stable, without signs of DVT. Doubt PE. Think that this is all related to his postoperative nasal congestion/clots. Discussed with on-call provider at the ENT office, who agrees to see the patient in the office this morning. Patient was discharged with plan to present directly to the ENT office for evaluation. Donte Disclaimer: Donte Disclaimer: This electronic medical record was generated, in whole or in part, using a voice recognition dictation system. Departure Departure Impression: Primary Impression: History of sinus surgery Disposition: HOME / SELF CARE / HOMELESS Condition: STABLE Additional Instructions: Please go directly to Dr. Singh's office. They will see you and help you to clean out your nose and go over instructions MYRNA WILLIAMSON MD Mar 18, 2021 11:55
== END 2021-03-18 09:37 | disposition home or self-care (01) ==
LOC: ER 07:56
DX: R09.81 Nasal congestion (principal); R06.02 Shortness of breath; I10 Essential (primary) hypertension; F17.200 Nicotine dependence, unspecified, uncomplicated; Z98.890 Other specified postprocedural states; Z88.1 Allergy status to other antibiotic agents; Z88.6 Allergy status to analgesic agent
CPT/HCPCS: 99281

== ENCOUNTER 2021-07-08 16:17 | Emergency (ER) | payer OTHER ==
[~2021-07-08] VITALS: Ht 175.3 cm; Wt 91.8 kg
[~2021-07-08 16:17] MED LIST changes: +CLIN-94 PO; -CLIN300C9 PO; +CYCL10TA19 PO; -CYCL10TA2 PO; -LISI-517 PO; +LISI5TAB15 PO
[2021-07-08] MEDS ORDERED: EPINEPHrine 1 MG/ML VIAL IM PRN (17:15)
[2021-07-08] MEDS ORDERED: FAMOTIDINE 20 MG TABLET. PO ONE (17:15)
[2021-07-08] MEDS ORDERED: predniSONE 10 MG TABLET PO ONE (17:15)
[2021-07-08] MEDS ORDERED: EPIPEN 2-P0.3 MG/0.3 IM (17:25)
--- NOTE | 2021-07-08 17:27 | PHYS DOC ---
Past Medical History Past Medical History: Hypertension, Additional Disease, Other Additional Past Medical Histor: Seasonal allergies (MYRNA WILLIAMSON MD) Past Surgical History: Other Additional Past Surgical Histo: SINUS SURGERY 03/17/21 (MYRNA WILLIAMSON MD) Smoking Status: Current Every Day Smoker Alcohol Use: Occasionally Drug Use: None (MYRNA WILLIAMSON MD) General Adult EDM: Chief Complaint: ALLERGIC REACTION HPI: HPI: Patient is a 50 year old male without pertinent past medical history who presents with concern for an allergic reaction. Was eating pork chops at around 12:30 PM this afternoon. No new ingredients or involved. Approximately 30-45 minutes later had diffuse itching all over his body. Denies any urticaria. He then had progressive swelling of his lips, tongue, and a swelling feeling in the back of his throat. Denied any shortness of breath, wheezing, N/V/D, or GI cramping. He is not on any medications, specifically is not on any MIGUE inhibitors. No other new exposures of food, or hygiene products. He has never had a similar reaction. States he took Benadryl 50 mg p.o. around 1 PM, and stated that it helped the itching significantly, as well as the swelling to some extent. (MYRNA WILLIAMSON MD) Review of Systems: Review of Systems: Constitutional: Denies fever or chills. [] Eyes: Denies change in visual acuity. [] HENT: Reports swelling in the lips, tongue, mouth. Respiratory: Denies cough or shortness of breath. [] Cardiovascular: Denies chest pain or edema. [] GI: Denies abdominal pain, nausea, vomiting, bloody stools or diarrhea. [] : Denies dysuria. [] Musculoskeletal: Denies back pain or joint pain. [] Integument: Denies rash. Reports diffuse itching. [] Neurologic: Denies headache, focal weakness or sensory changes. [] Psychiatric: Denies depression or anxiety. [] (MYRNA WILLIAMSON MD) Heart Score: C/O Chest Pain: No (MYRNA WILLIAMSON MD) Current Medications: Current Medications Medications (Trade) Dose Ordered Sig/Penny Start Time Stop Time Status Last Admin Dose Admin Epinephrine HCl (Adrenalin) 0.3 mg PRN Q5MIN PRN 12/3/21 17:15 UNV Famotidine (Pepcid) 20 mg 1X ONCE 07/08/21 17:15 07/08/21 17:16 UNV Prednisone (Prednisone) 50 mg 1X ONCE 07/08/21 17:15 07/08/21 17:16 UNV (MYRNA WILLIAMSON MD) Allergies: Allergies: Allergies Coded Allergies Type Severity Reaction Last Updated Verified amoxicillin Adverse Reaction Mild diarrhea 01/18/21 Yes clavulanic acid Adverse Reaction Mild diarrhea 01/18/21 Yes tramadol Adverse Reaction Unknown dizzy 01/20/20 Yes (MYRNA WILLIAMSON MD) Physical Exam: PE: Constitutional: Sitting on stretcher with legs crossed, no distress HENT: Obvious swelling of the upper and lower lips, tongue, mild swelling of the uvula. No stridor. Handling secretions well. Neck: Normal range of motion, no tenderness, supple, no stridor. [] Cardiovascular:Heart rate regular rhythm, no murmur [] Lungs & Thorax: Bilateral breath sounds clear to auscultation. No wheezes. [] Abdomen: Bowel sounds normal, soft, no tenderness, no masses, no pulsatile masses. [] Skin: No urticaria Back: No tenderness, no CVA tenderness. [] Extremities: No tenderness, no cyanosis, no clubbing, ROM intact, no edema. [] Neurologic: Alert and oriented X 3, normal motor function, normal sensory function, no focal deficits noted. [] Psychologic: Affect normal, judgement normal, mood normal. [] (MYRNA WILLIAMSON MD) EKG: EKG: [] (MYRNA WILLIAMSON MD) Radiology/Procedures: Radiology/Procedures: [] (MYRNA WILLIAMSON MD) Course & Med Decision Making: Course & Med Decision Making Pertinent Labs and Imaging studies reviewed. (See chart for details) Patient 50-year-old male who presents with concern for an allergic reaction after eating pork chops. Primary complaints are diffuse itching without urticaria, and swelling of the lips, tongue, and swelling sensation of the posterior throat. He does have significant edema in the oral cavity, but no evidence of airway compromise. Vital signs are normal. No distress on examination. He has no medications, specifically no MIGUE inhibitor's to suggest triggered angioedema. No history of similar. Given his oral edema, was treated with IM epinephrine, and will be observed. We will give famotidine and prednisone p.o. Will be signed out to oncoming physician with an observation and re-evaluation pending. Will send Rx for epi pen to his pharmacy. 1723 (MYRNA WILLIAMSON MD) Course & Med Decision Making Dr. Jenkins assuming care from Dr. Williamson at shift change at 1800. I agree with his history of present illness and physical examination as documented above. In brief, 50-year-old male presenting for mild facial swelling and generalized itchiness with onset after eating pork chops earlier this evening. On serial reassessments, patient is resting very comfortably and endorses resolution of all symptoms with therapy as per nursing flowsheet. Patient has been observed for an extended period of time without recurrence of symptoms. Will discharge home with 3 days of prednisone, Zyrtec, Pepcid and the EpiPen prescription which was previously sent by Dr. Williamson. Patient understands that if he feels worse instead of better or develops other new symptoms of concern that he should return to the emergency department immediately for reevaluation. Otherwise, close follow-up with primary care within the next 2 to 4 days a strongly advised. All questions are answered. (DREW JENKINS MD) Dragon Disclaimer: Dragon Disclaimer: This electronic medical record was generated, in whole or in part, using a voice recognition dictation system. (MYRNA WILLIAMSON MD) Departure Departure Impression: Primary Impression: Anaphylactic reaction Disposition: HOME / SELF CARE / HOMELESS Condition: IMPROVED Referrals: MALCOM CARSON DO (PCP) Patient Instructions: Anaphylactic Reaction Additional Instructions: Follow-up very closely with your primary care doctor in the office in the next 2 to 4 days for a reevaluation of your symptoms and to discussion of next best steps in care. Take the Zyrtec and Pepcid antihistamine pills as prescribed for the next 3 days and take the prednisone steroid for the next 3 days as prescribed as well to prevent a recurrence of your symptoms. The EpiPen is for use in the setting of a severe allergic reaction causing difficulty breathing, while you were calling the ambulance for help. Return to the emergency department right away for worsening symptoms of any kind or with any other new symptoms of concern. Scripts Prednisone (PREDNISONE) 50 Mg Tablet 1 TAB PO DAILY, #3 TAB Prov: DREW JENKINS MD 07/08/21 Famotidine (PEPCID) 20 Mg Tablet 20 MG PO BID, #6 TAB Prov: DREW JENKINS MD 07/08/21 Cetirizine Hcl (ZYRTEC) 10 Mg Tablet 1 TAB PO DAILY, #3 TAB 2 Refills Prov: DREW JENKINS MD 07/08/21 Epinephrine (EPIPEN 2-CARMINE) 0.3 Mg/0.3 Ml Auto.injct 1 SYR IM PRN 1X PRN for ANAPHYLAXIS for 1 Day, #1 PACKET 0 Refills Prov: MYRNA WILLIAMSON MD 07/08/21 MYRNA WILLIAMSON MD Jul 08, 2021 17:27 DREW JENKINS MD Jul 08, 2021 20:36
[2021-07-08 20:31] VITALS: BP 158/85
[2021-07-08] MEDS ORDERED: PRED50TA PO (20:35)
[2021-07-08] MEDS ORDERED: CETI10TA74 PO (20:35)
[2021-07-08] MEDS ORDERED: FAMO-63 PO (20:35)
== END 2021-07-08 20:45 | disposition home or self-care (01) ==
LOC: ER 16:17
DX: T78.2XXA Anaphylactic shock, unspecified, initial encounter (principal); I10 Essential (primary) hypertension; F17.200 Nicotine dependence, unspecified, uncomplicated; Z88.1 Allergy status to other antibiotic agents; Z88.6 Allergy status to analgesic agent; Z88.8 Allergy status to other drugs, medicaments and biological substances
CPT/HCPCS: 96372; 99284; J0171; J7512

== ENCOUNTER 2021-08-09 00:44 | Emergency (ER) | payer OTHER ==
[~2021-08-09] VITALS: Ht 175.3 cm; Wt 97.6 kg
[~2021-08-09 00:44] MED LIST changes: +CETI10TA74 PO; +EPIPEN 2-P0.3 MG/0.3 IM; +FAMO-63 PO
--- NOTE | 2021-08-09 04:24 | PHYS DOC ---
Past Medical History Past Medical History: Hypertension, Additional Disease, Other Additional Past Medical Histor: Seasonal allergies Past Surgical History: Other Additional Past Surgical Histo: SINUS SURGERY 03/17/21 Smoking Status: Current Every Day Smoker Alcohol Use: Occasionally Drug Use: None General Adult EDM: Chief Complaint: GENERAL COMPLAINT HPI: HPI: Patient is a 50 year old male who presents here with 2 to 3-day history of nasal congestion, mild, dry cough, mild headache and rhinorrhea and sneezing. He denies fever. He is not vaccinated against Covid. He reports that he thinks he might have another sinus infection. However, he had outpatient bilateral maxillary sinus surgery in March 2021. He had a history of recurrent sinusitis. He had not had any issues until the past few days. He has recently been around several of the people with upper respiratory symptoms. He denies c hest pain or dyspnea. He denies hemoptysis. He denies abdominal pain, nausea, vomiting, diarrhea. Review of Systems: Review of Systems: Constitutional: Denies fever or chills. [] Eyes: Denies change in visual acuity. [] HENT: Nasal congestion, sneezing, sinus congestion. No sore throat or earache Respiratory: Dry cough. Denies dyspnea, wheezing, hemoptysis. Cardiovascular: Denies chest pain or edema. [] GI: Denies abdominal pain, nausea, vomiting, or diarrhea Musculoskeletal: Denies back pain or joint pain. [] Integument: Denies rash. [] Neurologic: Denies headache, focal weakness or sensory changes. [] Psychiatric: Denies depression or anxiety. [] Heart Score: C/O Chest Pain: No Risk Factors: Risk Factors: DM, Current or recent (<one month) smoker, HTN, HLP, family history of CAD, obesity. Risk Scores: Score 0 - 3: 2.5% MACE over next 6 weeks - Discharge Home Score 4 - 6: 20.3% MACE over next 6 weeks - Admit for Clinical Observation Score 7 - 10: 72.7% MACE over next 6 weeks - Early Invasive Strategies Allergies: Allergies: Allergies Coded Allergies Type Severity Reaction Last Updated Verified amoxicillin Adverse Reaction Mild diarrhea 01/18/21 Yes clavulanic acid Adverse Reaction Mild diarrhea 01/18/21 Yes tramadol Adverse Reaction Unknown dizzy 01/20/20 Yes Physical Exam: PE: Constitutional: Well developed, well nourished, no acute distress, non-toxic appearance. [] HENT: Normocephalic, atraumatic, pharynx is patent and clear, no exudate or erythema, TMs are clear bilaterally, mild nasal congestion, no purulent rhinorrhea, no maxillary sinus tenderness or facial swelling noted. Mucous membranes are moist Eyes: Sclera are clear, anicteric, conjunctive are normal, no matting or discharge Neck: Normal range of motion, no tenderness, supple, no stridor. [] Cardiovascular:Heart rate regular rhythm, well-perfused Lungs & Thorax: Bilateral breath sounds clear to auscultation [] Skin: Warm, dry, no erythema, no rash. [] Extremities: No tenderness, no peripheral edema Neurologic: Alert and oriented X 3, normal motor function, normal sensory function, no focal deficits noted. [] Psychologic: Affect normal, judgement normal, mood normal. He is pleasant and cooperative. EKG: EKG: [] Radiology/Procedures: Radiology/Procedures: [] Course & Med Decision Making: Course & Med Decision Making Pertinent Labs and Imaging studies reviewed. (See chart for details) I discussed the findings, differential diagnosis and plan of care with the patient. There is a significant delay in obtaining his nasal swabs, the nursing staff reported that they did not see the order. I apologized to the patient for the inconvenience and for the wait time. He verbalized understanding. He is positive for COVID-19 infection. I explained this to him. He is to go home, self isolate. There is no current indication for further invasive exams, no indication for emergent imaging, no indication for antibiotics. I explained supportive care instructions to the patient, including [id number] antihistamines or decongestants to help with symptoms of congestion and rhinorrhea. Return precautions are given. He verbalized understanding. Donte Disclaimer: Donte Disclaimer: This electronic medical record was generated, in whole or in part, using a voice recognition dictation system. Departure Departure Impression: Primary Impression: COVID-19 Disposition: 01 HOME / SELF CARE / HOMELESS Condition: STABLE Referrals: MALCOM CARSON DO (PCP) Additional Instructions: You have been tested for or diagnosed with COVID-19. It is an infection caused by a new type of coronavirus. COVID-19 will cause cold-like or mild flu symptoms in most. It can cause more severe symptoms like problems breathing in some. There is no treatment for COVID-19. The body will clear the infection over time. Self-care will help to ease discomfort. Steps to Take: Self-Care Rest as needed. Healthy habits may help you feel better. Steps include: Choose healthy foods including fruits and vegetables. Drink water throughout the day. Get plenty of sleep each night. If you smoke, try to quit. It may ease breathing. Avoid alcohol. Keep Others Healthy The virus can spread to others. Droplets are released every time you sneeze or cough. The droplets can get into the mouth, nose, or eyes of people near you and lead to infection. To lower the chances of spreading COVID-19 to others: Stay at home until your doctor has said it is safe to leave. If you tested positive this will mean staying isolated until both of the following are true: At least 7 days have passed since the start of illness. You are free of fever for at least 72 hours without the use of medicine. During this time: - Avoid public areas, events, or transportation. Do not return to work or school until your doctor has said it is safe to do so. - Call ahead if you need to go to a medical center. Let them know you may have COVID-19. It will help them guide you where to go. They may also ask you to wear a facemask when you come to the office. - If you call for emergency medical services, let them know you may have COVID- 19. While at home: - Try to avoid close contact with others. Stay about 6 feet away. - If possible, spend most of your time in a separate room from others. - Use a face mask if you will be in close contact with others such as sharing a room or vehicle. - Have someone wipe down common surfaces in the home. Use household carbide tool maker every day on areas like doorknobs, counters, or sinks. - Cough or sneeze into a tissue. Throw the tissue away right after use. If a tissue is not available, cough or sneeze into your elbow. - Wash your hands often. Wash them after sneezing or coughing. Use soap and water and wash for at least 20 seconds. Alcohol based hand mercury cell cleaner can be used if soap and water is not available. - Do not prepare food for others. Avoid sharing personal items like forks, spoons, or toothbrushes. - Avoid close contact with pets while you are sick. There is no evidence of the virus passing to pets. This is a safety step until more is known about this virus. Isolation can be frustrating. Social interaction can help. Keep in touch with friends and family through phone and tech options. You can still interact with others in your home, just keep a safe distance of about 6 feet. Follow-up: Your doctors office will check in with you to see if there are any changes in your health. You may be asked to keep track of symptoms to share with them. They will also let you know when you are clear to be in public again. Problems to Look Out For: Contact your doctor if your recovery is not going as you expect. Get emergency care if you have problems such as: - Trouble breathing - Nonstop chest pain or pressure - Changes in awareness, confusion, or problems waking - Lips or face have bluish color - Worsening of symptoms If you think you have an emergency, call for emergency medical services right away. As taken from [facility] JOLENE ADAME DO Aug 09, 2021 04:24
[2021-08-09 06:58] LABS: INFLUENZA A PATIENT NEGATIVE (NEGATIVE); INFLUENZA B PATIENT NEGATIVE (NEGATIVE)
[2021-08-09 07:24] VITALS: BP 142/90
== END 2021-08-09 07:24 | disposition home or self-care (01) ==
LOC: ER 00:44
DX: U07.1 COVID-19 (principal); I10 Essential (primary) hypertension; F17.200 Nicotine dependence, unspecified, uncomplicated; Z88.1 Allergy status to other antibiotic agents; Z88.6 Allergy status to analgesic agent; Z88.8 Allergy status to other drugs, medicaments and biological substances
CPT/HCPCS: 87426; 87804; 99283